=== PATIENT | male | born 1930 | race Caucasian/White ===

== ENCOUNTER 2017-11-06 12:57 | Emergency (ER) | payer MEDICARE, BC ==
--- NOTE | 2017-11-06 13:10 | EDM.PDOC ---
ED HPI GENERAL MEDICAL PROBLEM - General Chief Complaint: Head Injury Stated Complaint: S/P FALL, HEAD INJURY Time Seen by Provider: 11/06/17 12:59 Source of Information: Reports: Patient History Limitations: Reports: No Limitations - History of Present Illness INITIAL COMMENTS - FREE TEXT/NARRATIVE: 87 YO WM presents to ER after fall today. Pt states he was stepping up on curb and tripped, falling forward and hitting the right side of his head on the ground. Pt denies any loss of consciousness. Pt denies any headache currently. Pt came to ER because he's on coumadin and was told he should be evaluated in ER due to risk of bleeding. Pt with a 1cm abrasion to right side of forehead. Pt with abrasion to right elbow without any pain, swelling or discomfort with AROM. Pt denies any neck pain or nausea/vomiting. Onset: Today Onset Date: 11/06/17 Onset Time: 12:00 Location: Reports: Head Severity: Mild Improves with: Reports: None Worsens with: Reports: None Context: Reports: Activity Associated Symptoms: Reports: No Other Symptoms - Related Data Allergies Allergy/AdvReac Type Severity Reaction Status Date / Time No Known Allergies Allergy Verified 11/06/17 13:19 Home Meds: Home Meds Finasteride [Proscar] 5 mg PO DAILY 03/14/13 [History] Magnesium Oxide [Mag-Oxide] 400 mg PO BEDTIME 03/14/13 [History] Metoprolol Succinate [Toprol XL] 37.5 mg PO DAILY 03/14/13 [History] Montelukast [Singulair] 10 mg PO DAILY 03/14/13 [History] Omeprazole 20 mg PO DAILY 03/14/13 [History] Terazosin [Hytrin] 5 mg PO BEDTIME 03/14/13 [History] Warfarin [Coumadin] 5 mg PO DAILY 03/14/13 [History] Lisinopril 10 mg PO DAILY 11/06/17 [History] ED ROS GENERAL - Review of Systems Review Of Systems: See Below Constitutional: Reports: No Symptoms HEENT: Reports: No Symptoms Respiratory: Reports: No Symptoms Cardiovascular: Reports: No Symptoms Endocrine: Reports: No Symptoms GI/Abdominal: Reports: No Symptoms : Reports: No Symptoms Musculoskeletal: Reports: No Symptoms Skin: Reports: No Symptoms Neurological: Reports: No Symptoms Psychiatric: Reports: No Symptoms Hematologic/Lymphatic: Reports: No Symptoms Immunologic: Reports: No Symptoms ED EXAM, HEAD INJURY - Physical Exam Exam: See Below Exam Limited By: No Limitations General Appearance: Alert, WD/WN, No Apparent Distress Head: Normocephalic, Scalp Abrasions Nexus Criteria: No: Posterior, Midline Cervical Tenderness, Evidence of Intoxication, Altered Level of Consciousness, Focal Neurological Deficit, Painful Distraction Injuries Eyes: Bilateral Eye: EOMI, PERRL Ears: Normal External Exam, Normal Canal, Hearing Grossly Normal, Normal TMs Nose: Normal Inspection, Normal Mucousa, No Blood Throat/Mouth: Normal Inspection, Normal Lips, Normal Teeth, Normal Gums, Normal Oropharynx, Normal Voice, No Airway Compromise Neck: Non-Tender, Full Range of Motion, Normal Alignment, Normal Inspection Respiratory: No Respiratory Distress, Lungs Clear, Normal Breath Sounds, No Accessory Muscle Use, Chest Non-Tender Cardiovascular: Normal Peripheral Pulses, Regular Rate, Rhythm, No Edema, No Gallop, No JVD, No Murmur, No Rub GI/Abdominal Exam: Normal Bowel Sounds, Soft, Non-Tender, No Organomegaly, No Distention, No Abnormal Bruit, No Mass Back Exam: Full Range of Motion, Normal Inspection, NT Extremities: Normal Inspection, Normal Range of Motion, Non-Tender, No Pedal Edema, Normal Capillary Refill 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, No Motor/Sensory Deficits, Alert, Normal Mood/Affect, Oriented x 3 Skin: Normal Color, Warm/Dry - Anderson Coma Score Best Eye Response (Anderson): (4) Open Spontaneously Best Verbal Response (Tatum): (5) Oriented Best Motor Response (Anderson): (6) Obeys Commands Course - Vital Signs Last Recorded V/S: Last Vital Signs Temp 36.6 C 11/06/17 13:11 Pulse 68 11/06/17 13:11 Resp 20 11/06/17 13:11 BP 155/93 H 11/06/17 13:11 Pulse Ox 96 11/06/17 13:11 - Orders/Labs/Meds Orders: Active Orders 24 hr Category Date Time Status Head wo Cont [CT] Stat Exams 11/06/17 12:58 Ordered Labs: Laboratory Tests 11/06/17 Range/Units 13:12 PT TNP INR 2.0 H (0.9-1.1) - Radiology Interpretation Free Text/Narrative:: CT head- NAD Departure - Departure Time of Disposition: 14:17 Disposition: Home, Self-Care 01 Condition: Good Clinical Impression: Contusion Head injury due to trauma Qualifiers: Encounter type: initial encounter Qualified Code(s): S09.90XA - Unspecified injury of head, initial encounter - Discharge Information Instructions: Head Injury, Adult, [id number], Facial or Scalp Contusion, Easy -to-Read Forms: ED Department Discharge Additional Instructions: 1. discharge home 2. head injury precautions given 3. follow up with PCP for further evaluation as needed 4. return to ER for worsening symptoms - My Orders Last 24 Hours: My Active Orders 11/06/17 12:58 Head wo Cont [CT] Stat - Assessment/Plan Last 24 Hours: My Active Orders 11/06/17 12:58 Head wo Cont [CT] Stat Assessment:: 1. head contusion 2. fall Plan: 1. discharge home 2. head injury precautions given 3. follow up with PCP for further evaluation as needed 4. return to ER for worsening symptoms
== END 2017-11-06 14:25 | disposition home or self-care (01) ==
LOC: KA.ED 12:57
DX: S09.90XA Unspecified injury of head, initial encounter (principal); S00.01XA Abrasion of scalp, initial encounter; Z79.899 Other long term (current) drug therapy; W01.0XXA Fall on same level from slipping, tripping and stumbling without subsequent striking against object, initial encounter
CPT/HCPCS: 36416; 70450; 85610; 99284

== ENCOUNTER 2019-02-11 08:09 | Observation (INO) | payer MEDICARE, BC ==
--- NOTE | 2019-02-11 09:06 | EDM.PDOC ---
ED HPI GENERAL MEDICAL PROBLEM - General Chief Complaint: General Stated Complaint: COLD SYMPTOMS,SHORTNESS OF BREATH Time Seen by Provider: 02/11/19 08:30 Source of Information: Reports: Patient History Limitations: Reports: No Limitations - History of Present Illness INITIAL COMMENTS - FREE TEXT/NARRATIVE: Patient presents with dyspnea. He says 2 days ago he noticed he was very short of breath after a brief walk. That happened again yesterday. Today he is short of breath all the time. He feels like he should be able to cough something up but can't. He denies asthma, COPD or emphysema. Three years ago he had a cardiac device/pacemaker placed and has A Fib. Denies any pain in chest, neck, shoulder/arm. No recent fever. - Related Data Allergies Allergy/AdvReac Type Severity Reaction Status Date / Time No Known Allergies Allergy Verified 02/11/19 08:38 Home Meds: Home Meds Finasteride [Proscar] 5 mg PO DAILY 03/14/13 [History] Magnesium Oxide [Mag-Oxide] 400 mg PO BEDTIME 03/14/13 [History] Metoprolol Succinate [Toprol XL] 25 mg PO BEDTIME 03/14/13 [History] Montelukast [Singulair] 10 mg PO BEDTIME 03/14/13 [History] Terazosin [Hytrin] 5 mg PO BEDTIME 03/14/13 [History] Warfarin [Coumadin] 5 mg PO ASDIRECTED 03/14/13 [History] Lisinopril 10 mg PO DAILY 11/06/17 [History] Chlorpheniramine Maleate [Allergy Relief] 12 mg PO DAILY PRN 02/11/19 [History] Multivit-Min/FA/Lycopen/Lutein [Centrum Silver Men Tablet] 1 each PO DAILY 02/11 [History] Ranitidine [Zantac] 150 mg PO DAILY PRN 02/11/19 [History] Past Medical History HEENT History: Reports: Cataract, Hard of Hearing, Impaired Vision Cardiovascular History: Reports: Hypertension, Pacemaker, Syncope Respiratory History: Reports: None Gastrointestinal History: Reports: GERD, Hepatitis Genitourinary History: Reports: Prostate Disorder Musculoskeletal History: Reports: Fracture Neurological History: Reports: None Psychiatric History: Reports: None Endocrine/Metabolic History: Reports: None Hematologic History: Reports: None Immunologic History: Reports: None Oncologic (Cancer) History: Reports: Prostate Dermatologic History: Reports: None - Infectious Disease History Infectious Disease History: Reports: Chicken Pox, Measles, Mumps - Past Surgical History HEENT Surgical History: Reports: Cataract Surgery Cardiovascular Surgical History: Reports: None Respiratory Surgical History: Reports: None GI Surgical History: Reports: Colonoscopy, EGD Endocrine Surgical History: Reports: None Neurological Surgical History: Reports: None Musculoskeletal Surgical History: Reports: None Oncologic Surgical History: Reports: None Dermatological Surgical History: Reports: None Social & Family History - Family History Family Medical History: Noncontributory - Caffeine Use Caffeine Use: Reports: None ED ROS GENERAL - Review of Systems Review Of Systems: See Below Constitutional: Denies: Fever, Chills, Weakness, Decreased Appetite HEENT: Denies: Throat Pain, Vision Change Respiratory: Reports: Shortness of Breath, Cough (a little) Cardiovascular: Denies: Chest Pain, Lightheadedness, Syncope GI/Abdominal: Denies: Abdominal Pain, Constipation, Diarrhea, Nausea, Vomiting : Denies: Dysuria, Flank Pain Musculoskeletal: Denies: Neck Pain, Shoulder Pain, Arm Pain Skin: Denies: Cyanosis, Jaundice, Mottled, Pallor, Diaphoresis Neurological: Denies: Confusion, Dizziness, Seizure, Syncope, Trouble Speaking, Difficulty Walking Psychiatric: Denies: Agitation, Anxiety, Confusion ED EXAM, GENERAL - Physical Exam Exam: See Below Exam Limited By: No Limitations General Appearance: Alert, WD/WN, No Apparent Distress Eye Exam: Bilateral Eye: EOMI, Normal Inspection, PERRL Ears: Normal External Exam, Hearing Grossly Normal Nose: Normal Inspection, No Blood Throat/Mouth: Normal Inspection, Normal Voice, No Airway Compromise, Perioral Cyanosis (slight) Head: Atraumatic, Normocephalic Neck: Normal Inspection, Full Range of Motion Respiratory/Chest: Decreased Breath Sounds (shallow respirations), Crackles ( mild bilat). No: Rhonchi, Wheezing, Stridor Cardiovascular: Regular Rate, Rhythm, No Murmur GI/Abdominal: Normal Bowel Sounds, Soft, Non-Tender, No Organomegaly, No Distention Back Exam: Normal Inspection, Full Range of Motion. No: CVA Tenderness (L), CVA Tenderness (R) Extremities: Normal Inspection, Normal Range of Motion Neurological: Alert, Oriented, Normal Cognition, No Motor/Sensory Deficits Psychiatric: Normal Affect, Normal Mood Skin Exam: Warm, Dry, Intact, No Rash, Pallor (mild) Course - Vital Signs Last Recorded V/S: Last Vital Signs Temp 98.9 F 02/11/19 09:59 Pulse 83 02/11/19 09:59 Resp 24 H 02/11/19 09:59 BP 142/102 H 02/11/19 09:59 Pulse Ox 93 L 02/11/19 09:59 - Orders/Labs/Meds Orders: Active Orders 24 hr Category Date Time Status Patient Status [ADT] Routine ADT 02/11/19 09:56 Ordered EKG Documentation Completion [RC] ASDIRECTED Care 02/11/19 09:05 Ordered CULTURE BLOOD [BC] Stat Lab 02/11/19 09:40 Ordered CULTURE BLOOD [BC] Stat Lab 02/11/19 09:40 Ordered Blood Culture x2 Reflex Set [OM.PC] Stat Oth 02/11/19 09:40 Ordered EKG 12 Lead [EK] Routine Ther 02/11/19 09:03 Ordered Labs: Laboratory Tests 02/11/19 02/11/19 02/11/19 Range/Units 09:10 09:10 09:10 WBC 5.54 (5.00-10.00) 10^3/uL RBC 4.58 (4.50-6.00) 10^6/uL Hgb 14.0 (13.0-17.0) g/dL Hct 42.4 (40.0-52.0) % MCV 92.6 H D (82.0-92.0) fL MCH 30.6 (27.0-31.0) pg MCHC 33.0 (32.0-36.0) g/dL RDW 14.4 (11.5-14.5) % Plt Count 151 (150-400) 10^3/uL MPV 11.8 H (7.4-10.4) fL Immature Gran % (Auto) 0.2 (0.0-5.0) % Neut % (Auto) 67.7 (50.0-70.0) % Lymph % (Auto) 17.3 L (20.0-40.0) % [place] % (Auto) 12.5 H (2.0-8.0) % Eos % (Auto) 1.6 (1.0-3.0) % Baso % (Auto) 0.7 (0.0-1.0) % Immature Gran # (Auto) 0.01 (0.00-0.50) 10^3/uL Neut # (Auto) 3.75 (2.50-7.00) 10^3/uL Lymph # (Auto) 0.96 L (1.00-4.00) 10^3/uL [place] # (Auto) 0.69 (0.10-0.80) 10^3/uL Eos # (Auto) 0.09 L (0.10-0.30) 10^3/uL Baso # (Auto) 0.04 (0.00-0.10) 10^3/uL PT 27.6 H (8.9-11.4) SEC INR 2.8 H (0.9-1.1) D-Dimer, Quantitative (<400) ng/mL Sodium 140 (136-145) mmol/L Potassium 4.7 (3.3-5.3) mmol/L Chloride 106 (98-115) mmol/L Carbon Dioxide 25.5 (21.0-32.0) mmol/L Anion Gap 13.2 (5-15) mmol/L BUN 25 (6-25) mg/dL Creatinine 1.24 H (0.51-1.17) mg/dL Est Cr Clr Drug Dosing 41.37 mL/min Estimated GFR (MDRD) 55 mL/min Glucose 91 (75 - 99) mg/dL Calcium 8.7 (8.7-10.3) mg/dL Total Bilirubin 2.3 H (0.2-1.0) mg/dL AST 71 H (15-37) U/L ALT 57 (12-78) U/L Alkaline Phosphatase 211 H (46-116) IU/L Troponin I 0.05 (0.00-0.070) ng/mL B-Natriuretic Peptide (0-100) pg/mL Total Protein 6.8 (6.4-8.2) g/dL Albumin 3.14 (3.00-4.80) g/dL 02/11/19 02/11/19 Range/Units 09:10 09:50 WBC (5.00-10.00) 10^3/uL RBC (4.50-6.00) 10^6/uL Hgb (13.0-17.0) g/dL Hct (40.0-52.0) % MCV (82.0-92.0) fL MCH (27.0-31.0) pg MCHC (32.0-36.0) g/dL RDW (11.5-14.5) % Plt Count (150-400) 10^3/uL MPV (7.4-10.4) fL Immature Gran % (Auto) (0.0-5.0) % Neut % (Auto) (50.0-70.0) % Lymph % (Auto) (20.0-40.0) % [place] % (Auto) (2.0-8.0) % Eos % (Auto) (1.0-3.0) % Baso % (Auto) (0.0-1.0) % Immature Gran # (Auto) (0.00-0.50) 10^3/uL Neut # (Auto) (2.50-7.00) 10^3/uL Lymph # (Auto) (1.00-4.00) 10^3/uL [place] # (Auto) (0.10-0.80) 10^3/uL Eos # (Auto) (0.10-0.30) 10^3/uL Baso # (Auto) (0.00-0.10) 10^3/uL PT (8.9-11.4) SEC INR (0.9-1.1) D-Dimer, Quantitative 230 (<400) ng/mL Sodium (136-145) mmol/L Potassium (3.3-5.3) mmol/L Chloride (98-115) mmol/L Carbon Dioxide (21.0-32.0) mmol/L Anion Gap (5-15) mmol/L BUN (6-25) mg/dL Creatinine (0.51-1.17) mg/dL Est Cr Clr Drug Dosing mL/min Estimated GFR (MDRD) mL/min Glucose (75 - 99) mg/dL Calcium (8.7-10.3) mg/dL Total Bilirubin (0.2-1.0) mg/dL AST (15-37) U/L ALT (12-78) U/L Alkaline Phosphatase (46-116) IU/L Troponin I (0.00-0.070) ng/mL B-Natriuretic Peptide 407 H (0-100) pg/mL Total Protein (6.4-8.2) g/dL Albumin (3.00-4.80) g/dL Meds: Medications Discontinued Medications Generic Name Dose Route Start Last Admin Trade Name Apolinarq PRN Reason Stop Dose Admin Ceftriaxone Sodium 2 gm 02/11/19 09:48 02/11/19 10:20 Rocephin IVPUSH 02/11/19 09:49 2 gm ONETIME ONE Administration - Re-Assessments/Exams Free Text/Narrative Re-Assessment/Exam: 02/11/19 09:59 CXR shows left base infiltrates. CBC and dimer are okay. INR is 2.8. Blood cultures are pending. Will start Rocephin 2 gm ORAL. Discussed findings with patient and he is okay with hospitalization. Discussed case with Dr. Stephen Wells who accepted for admission. Patient stable. 02/11/19 10:09 CXR report indicates CHF and pulmonary edema without mention of infiltrate. I feel there is one at least on the left. Without any ankle swelling or other clinical edema will continue with plan for pneumonia treatment and also check BNP. I informed Dr. Franklin of this. Departure - Departure Time of Disposition: 09:59 Disposition: Admitted As Inpatient 68 Condition: Good Clinical Impression: Hypoxemia requiring supplemental oxygen CAP (community acquired pneumonia) Qualifiers: Laterality: unspecified laterality Qualified Code(s): J18.9 - Pneumonia, unspecified organism - Discharge Information Referrals: Flora Tello PA-C [Primary Care Provider] - Forms: ED Department Discharge - My Orders Last 24 Hours: My Active Orders 02/11/19 09:03 EKG 12 Lead [EK] Routine 02/11/19 09:05 EKG Documentation Completion [RC] ASDIRECTED 02/11/19 09:40 CULTURE BLOOD [BC] Stat CULTURE BLOOD [BC] Stat Blood Culture x2 Reflex Set [OM.PC] Stat 02/11/19 09:56 Patient Status [ADT] Routine - Assessment/Plan Last 24 Hours: My Active Orders 02/11/19 09:03 EKG 12 Lead [EK] Routine 02/11/19 09:05 EKG Documentation Completion [RC] ASDIRECTED 02/11/19 09:40 CULTURE BLOOD [BC] Stat CULTURE BLOOD [BC] Stat Blood Culture x2 Reflex Set [OM.PC] Stat 02/11/19 09:56 Patient Status [ADT] Routine
[2019-02-11 09:45] LABS: ANION GAP 13.2 mmol/L (5-15)
[2019-02-11] MEDS ORDERED: cefTRIAXone 2 GM Vial IVPUSH ONE (09:48)
[2019-02-11] MEDS ORDERED: Sodium Chloride 0.9% 10 ML Syringe FLUSH PRN (10:56)
[2019-02-11] MEDS ORDERED: Furosemide 40 MG/4 ML VIAL IVPUSH ONE (15:55)
--- NOTE | 2019-02-11 16:34 | PCM.HP.2 ---
H&P History of Present Illness - General Date of Service: 02/11/19 Admit Problem/Dx: Admission Diagnosis/Problem Admission Diagnosis/Problem Shortness of breath - History of Present Illness Initial Comments - Free Text/Narative: Mr. Chaves reports that in the past few days, he developed a runny nose and congestion. He had family around for Thanksgiving and after they left, he felt that he didn't have the "gumption" he used to and was a little more "worn out." He has noticed having less energy in the past several months. He felt "winded" with trying to get everything cleaned up in his house and figured he'd better get checked out. He endorses that he is independent with all ADLs and iADLs, including driving in town. He admits that he has not been as active as he used to and "gets played out" easier in general. He hasn't noticed any other concerns , notably including cough, chest pain, fever, or other URI symptoms. - Related Data Allergies/Adverse Reactions: Allergies Allergy/AdvReac Type Severity Reaction Status Date / Time celery Allergy Vomiting Verified 02/11/19 11:08 Home Medications: Home Meds Finasteride [Proscar] 5 mg PO DAILY 03/14/13 [History] Magnesium Oxide 400 mg PO BEDTIME 03/14/13 [History] Metoprolol Succinate [Toprol XL] 25 mg PO BEDTIME 03/14/13 [History] Montelukast [Singulair] 10 mg PO BEDTIME 03/14/13 [History] Terazosin [Hytrin] 5 mg PO BEDTIME 03/14/13 [History] Warfarin [Coumadin] 5 mg PO ASDIRECTED 03/14/13 [History] Lisinopril 10 mg PO DAILY 11/06/17 [History] Chlorpheniramine Maleate [Allergy Relief] 12 mg PO DAILY PRN 02/11/19 [History] Multivit-Min/FA/Lycopen/Lutein [Centrum Silver Men Tablet] 1 each PO DAILY 02/11 [History] Ranitidine [Zantac] 150 mg PO DAILY PRN 02/11/19 [History] Furosemide 10 mg PO DAILY #15 tablet 02/12/19 [Rx] Ipratropium [Atrovent 0.06% Nasal [place]] 2 spray NASBOTH Q6H PRN #1 bottle 02/12 [Rx] Past Medical History HEENT History: Reports: Cataract, Hard of Hearing, Impaired Vision Cardiovascular History: Reports: Hypertension, Pacemaker, Syncope Respiratory History: Reports: None Gastrointestinal History: Reports: GERD, Hepatitis Genitourinary History: Reports: Prostate Disorder Musculoskeletal History: Reports: Fracture Neurological History: Reports: None Psychiatric History: Reports: None Endocrine/Metabolic History: Reports: None Hematologic History: Reports: None Immunologic History: Reports: None Oncologic (Cancer) History: Reports: Prostate Dermatologic History: Reports: None - Infectious Disease History Infectious Disease History: Reports: Chicken Pox, Measles, Mumps - Past Surgical History HEENT Surgical History: Reports: Cataract Surgery Cardiovascular Surgical History: Reports: None Respiratory Surgical History: Reports: None GI Surgical History: Reports: Colonoscopy, EGD Endocrine Surgical History: Reports: None Neurological Surgical History: Reports: None Musculoskeletal Surgical History: Reports: None Oncologic Surgical History: Reports: None Dermatological Surgical History: Reports: None Social & Family History - Family History Oncologic: Reports: Breast (mother), Prostate - Tobacco Use Smoking Status *Q: Former Smoker Used Tobacco, but Quit: Yes Month/Year Tobacco Last Used: quit 1950 Second Hand Smoke Exposure: No - Caffeine Use Caffeine Use: Reports: None - Recreational Drug Use Recreational Drug Use: No H&P Review of Systems - Review of Systems: Review Of Systems: See Below General: Reports: Malaise, Weakness, Fatigue. Denies: Fever, Chills, Night Sweats, Diaphoresis, Decreased Appetite, Weight Loss, Weight Gain HEENT: Reports: Rhinitis, Post Nasal Drip, Sinus Congestion. Denies: Dysphasia , Ear Pain, Eye Pain, Hearing Changes, Sore Throat Pulmonary: Reports: Shortness of Breath. Denies: Wheezing, Pleuritic Chest Pain , Cough, Sputum, Hemoptysis Cardiovascular: Reports: Dyspnea on Exertion, Edema. Denies: Chest Pain, Palpitations, Orthopnea, PND, Lightheadedness, Syncope, Claudication Gastrointestinal: Denies: Abdominal Pain, Black Stool, Bloody Stool, Constipation, Diarrhea, Decreased Appetite, Difficulty Swallowing Genitourinary: Denies: Dysuria, Frequency, Burning, Pain Musculoskeletal: Denies: Shoulder Pain, Back Pain, Joint Pain Skin: Denies: Jaundice, Rash, Wound Psychiatric: Denies: Confusion, Depression, Anxiety Neurological: Reports: Gait Disturbance. Denies: Confusion, Dizziness, Headache , Numbness, Tingling Exam - Exam Exam: See Below - Vital Signs Vital Signs: Last Vital Signs Temp 36.4 C 02/11/19 10:55 Pulse 91 02/11/19 10:55 Resp 20 02/11/19 10:55 BP 142/103 H 02/11/19 10:55 Pulse Ox 94 L 02/11/19 10:56 Weight: 97.84 kg - Exam Physical Exam Comments:: GENERAL: Well-appearing elderly white male sitting on hospital bed in no acute distress. HEENT: Normocephalic, atraumatic. Conjunctiva clear. Nares patent with clear rhinorrhea. Mucous membranes moist, posterior pharynx unremarkable. NECK: Supple, no masses. CV: Irregularly irregular, 2/6 systolic murmur at LLSB and apex, no rubs or gallops. 2+ radial pulses. PULMONARY: Normal effort, clear to auscultation bilaterally, no wheezes or rhonchi, faint crackles in the bilateral bases. ABDOMEN: Positive bowel sounds, soft, nontender, nondistended. EXTREMITIES: 1+ edema in the bilateral legs to mid-mejia, no cyanosis or clubbing. MUSCULOSKELETAL: Moves all extremities well. NEUROLOGICAL: No obvious deficits. DERMATOLOGIC: No rashes or suspicious lesions in exposed areas. PSYCHIATRIC: Alert, interactive, appropriate affect. - Patient Data Lab Results Last 24 hrs: Laboratory Results - last 24 hr 02/11/19 02/11/19 02/11/19 Range/Units 09:10 09:10 09:10 WBC 5.54 (5.00-10.00) 10^3/uL RBC 4.58 (4.50-6.00) 10^6/uL Hgb 14.0 (13.0-17.0) g/dL Hct 42.4 (40.0-52.0) % MCV 92.6 H D (82.0-92.0) fL MCH 30.6 (27.0-31.0) pg MCHC 33.0 (32.0-36.0) g/dL RDW 14.4 (11.5-14.5) % Plt Count 151 (150-400) 10^3/uL MPV 11.8 H (7.4-10.4) fL Immature Gran % (Auto) 0.2 (0.0-5.0) % Neut % (Auto) 67.7 (50.0-70.0) % Lymph % (Auto) 17.3 L (20.0-40.0) % [place] % (Auto) 12.5 H (2.0-8.0) % Eos % (Auto) 1.6 (1.0-3.0) % Baso % (Auto) 0.7 (0.0-1.0) % Immature Gran # (Auto) 0.01 (0.00-0.50) 10^3/uL Neut # (Auto) 3.75 (2.50-7.00) 10^3/uL Lymph # (Auto) 0.96 L (1.00-4.00) 10^3/uL [place] # (Auto) 0.69 (0.10-0.80) 10^3/uL Eos # (Auto) 0.09 L (0.10-0.30) 10^3/uL Baso # (Auto) 0.04 (0.00-0.10) 10^3/uL PT 27.6 H (8.9-11.4) SEC INR 2.8 H (0.9-1.1) D-Dimer, Quantitative (<400) ng/mL Sodium 140 (136-145) mmol/L Potassium 4.7 (3.3-5.3) mmol/L Chloride 106 (98-115) mmol/L Carbon Dioxide 25.5 (21.0-32.0) mmol/L Anion Gap 13.2 (5-15) mmol/L BUN 25 (6-25) mg/dL Creatinine 1.24 H (0.51-1.17) mg/dL Est Cr Clr Drug Dosing 41.37 mL/min Estimated GFR (MDRD) 55 mL/min Glucose 91 (75 - 99) mg/dL Calcium 8.7 (8.7-10.3) mg/dL Total Bilirubin 2.3 H (0.2-1.0) mg/dL AST 71 H (15-37) U/L ALT 57 (12-78) U/L Alkaline Phosphatase 211 H (46-116) IU/L Troponin I 0.05 (0.00-0.070) ng/mL B-Natriuretic Peptide (0-100) pg/mL Total Protein 6.8 (6.4-8.2) g/dL Albumin 3.14 (3.00-4.80) g/dL 02/11/19 02/11/19 Range/Units 09:10 09:50 WBC (5.00-10.00) 10^3/uL RBC (4.50-6.00) 10^6/uL Hgb (13.0-17.0) g/dL Hct (40.0-52.0) % MCV (82.0-92.0) fL MCH (27.0-31.0) pg MCHC (32.0-36.0) g/dL RDW (11.5-14.5) % Plt Count (150-400) 10^3/uL MPV (7.4-10.4) fL Immature Gran % (Auto) (0.0-5.0) % Neut % (Auto) (50.0-70.0) % Lymph % (Auto) (20.0-40.0) % [place] % (Auto) (2.0-8.0) % Eos % (Auto) (1.0-3.0) % Baso % (Auto) (0.0-1.0) % Immature Gran # (Auto) (0.00-0.50) 10^3/uL Neut # (Auto) (2.50-7.00) 10^3/uL Lymph # (Auto) (1.00-4.00) 10^3/uL [place] # (Auto) (0.10-0.80) 10^3/uL Eos # (Auto) (0.10-0.30) 10^3/uL Baso # (Auto) (0.00-0.10) 10^3/uL PT (8.9-11.4) SEC INR (0.9-1.1) D-Dimer, Quantitative 230 (<400) ng/mL Sodium (136-145) mmol/L Potassium (3.3-5.3) mmol/L Chloride (98-115) mmol/L Carbon Dioxide (21.0-32.0) mmol/L Anion Gap (5-15) mmol/L BUN (6-25) mg/dL Creatinine (0.51-1.17) mg/dL Est Cr Clr Drug Dosing mL/min Estimated GFR (MDRD) mL/min Glucose (75 - 99) mg/dL Calcium (8.7-10.3) mg/dL Total Bilirubin (0.2-1.0) mg/dL AST (15-37) U/L ALT (12-78) U/L Alkaline Phosphatase (46-116) IU/L Troponin I (0.00-0.070) ng/mL B-Natriuretic Peptide 407 H (0-100) pg/mL Total Protein (6.4-8.2) g/dL Albumin (3.00-4.80) g/dL Result Diagrams: 02/12/19 07:20 02/12/19 07:20 Problem List Initiated/Reviewed/Updated: Yes Orders Last 24hrs: Active Orders 24 hr Category Date Time Status Patient Status [ADT] Routine ADT 02/11/19 09:56 Active EKG Documentation Completion [RC] ASDIRECTED Care 02/11/19 09:05 Active Oxygen Therapy [RC] PRN Care 02/11/19 10:56 Active Peripheral IV Care [RC] . DIRECTED Care 02/11/19 10:57 Active Pneumonia Education [RC] Click to Edit Care 02/11/19 10:56 Active Up With Assistance [RC] ASDIRECTED Care 02/11/19 10:58 Active VTE/DVT Education [RC] PER UNIT ROUTINE Care 02/11/19 11:00 Active Vital Signs [RC] Q8HR Care 02/11/19 11:00 Active CBC WITH AUTO DIFF [HEME] AM Lab 02/12/19 05:11 Ordered CMP [COMPREHENSIVE METABOLIC PN,CMP] [CHEM] AM Lab 02/12/19 05:11 Ordered CULTURE BLOOD [BC] Stat Lab 02/11/19 09:51 Received CULTURE BLOOD [BC] Stat Lab 02/11/19 10:00 Received PROCALCITONIN [REF] Routine Lab 02/11/19 09:51 Received Finasteride [Proscar] Med 02/12/19 09:00 Active 5 mg PO DAILY Lisinopril [Prinivil] Med 02/12/19 09:00 Active 10 mg PO DAILY Magnesium Oxide Med 02/11/19 21:00 Active 500 mg PO BEDTIME Metoprolol Succinate [Toprol XL] Med 02/11/19 21:00 Active 25 mg PO BEDTIME Montelukast [Singulair] Med 02/11/19 21:00 Active 10 mg PO BEDTIME Ranitidine [Zantac] Med 02/11/19 11:01 Active 150 mg PO DAILY PRN Sodium Chloride 0.9% [Saline Flush] Med 02/11/19 10:56 Active 10 ml FLUSH Q8HR PRN Terazosin [Hytrin] Med 02/11/19 21:00 Active 5 mg PO BEDTIME Warfarin [Coumadin] Med 02/11/19 18:00 Active 2.5 mg PO SuTuThSa@1800 Warfarin [Coumadin] Med 02/12/19 18:00 Active 5 mg PO MoWeFr@1800 Blood Culture x2 Reflex Set [OM.PC] Stat Oth 02/11/19 09:40 Ordered Peripheral IV Insertion Adult [OM.PC] Routine Oth 02/11/19 10:56 Ordered Code Status [Resuscitation Status] Routine Resus Stat 02/11/19 15:55 Ordered EKG 12 Lead [EK] Routine Ther 02/11/19 09:03 Ordered Medication Orders Finasteride (Proscar) 5 mg PO DAILY BRE Lisinopril (Prinivil) 10 mg PO DAILY BRE Magnesium Oxide (Magnesium Oxide) 500 mg PO BEDTIME BRE Metoprolol Succinate (Toprol Xl) 25 mg PO BEDTIME BRE Montelukast Sodium (Singulair) 10 mg PO BEDTIME BRE Ranitidine HCl (Zantac) 150 mg PO DAILY PRN PRN Reason: Heartburn Sodium Chloride (Saline Flush) 10 ml FLUSH Q8HR PRN PRN Reason: keep vein open Terazosin HCl (Hytrin) 5 mg PO BEDTIME BRE Warfarin Sodium (Coumadin) 5 mg PO MoWeFr@1800 BRE Warfarin Sodium (Coumadin) 2.5 mg PO SuTuThSa@1800 BRE Assessment/Plan Comment:: HPI summary: 88yoM with a history notable for atrial fibrillation, HTN, and CKD who developed a runny nose and congestion a few days prior to admission. He had family around for Thanksgiving and after they left, he felt that he didn't have the "gumption" he used to and was a little more "worn out." He has noticed having less energy in the past several months. He felt "winded" with trying to get everything cleaned up in his house and figured he'd better get checked out. He admits that he has not been as active as he used to and "gets played out" easier in general. He hadn't noticed any other concerns, notably including fever , chills, cough, chest pain, or other concerns. ED course: Per provider report, patient had an oxygen requirement of 2lpm and CXR showing basilar pneumonia in the setting of shortness of breath and cough. In review of VS, initial O2 was 91% when oxygen was applied. Remainder of VS normal. CBC/CMP/ D-dimer/troponin/BNP obtained and only abnormalities were Cr 1.24 (baseline 1.2) , bilirubin 2.3 (baseline 1.3), ALP 211 (baseline 160s-170s), AST 71 (baseline 30s-40s), and BNP 407 (no prior). INR 2.8. EKG was in atrial fibrillation. CXR was reported by ED provider as basilar pneumonia, but report later showed evidence of heart failure. He was given ceftriaxone 2gm. After receiving report , accepted for admission, and after independent evaluation, changed status to observation for monitoring, as below. Hospitalization problems and plan: # Heart failure, unknown systolic or diastolic, unknown chronicity # Systolic murmur at apex: No prior echo. # Rhinorrhea, likely viral and/or allergic # Physical deconditioning All of above likely contributors to intermittent, subjective shortness of breath. No evidence of ischemia on EKG or troponin and no complaints of chest pain. He was given ceftriaxone in the ED, but clinical picture without hypoxia, cough, elevated WBC or neutrophilia, or CXR evidence of infiltrate make the diagnosis of pneumonia unlikely. Alternate etiology of HF more likely, with increased sodium intake in the past few days, and elevated BNP. Also with worsening chronic deconditioning, which is certainly also playing a role. Proceed with the following: - Furosemide 10mg IV now - I/O and daily weight - Supportive cares for rhinorrhea, with nasal saline and ipratropium nasal sprays, in addition to outpatient montelukast - AM CBC and CMP - Procalcitonin added, but likely to be of help due to delayed receipt of result as it is a sendout - Outpatient echo - Outpatient physical therapy Chronic, stable conditions: # Atrial fibrillation: rate controlled. Asymptomatic. Continue warfarin and metoprolol succinate. # HTN: Controlled. Continue lisinopril. # CKD, stage 3: At baseline. # BPH: Clinically stable. Continue terazosin and finasteride. # Thrombocytopenia: At baseline. # Hyperbilirubinemia/Elevated ALP and AST: Just above baseline. Recheck tomorrow. # Hypomagnesemia: Recent check wnl. Continue supplementation. # Hypocalcemia: At baseline # Hx prostate cancer Hospitalization details: # FEN: No IVF. Electrolytes normal; recheck tomorrow. Heart healthy diet. # PPX: Therapeutic INR sufficient for DVT ppx. # Code status: FULL. # Disposition: Admit to observation for monitoring of cardiorespiratory status. Anticipate discharge to home tomorrow.
[2019-02-11] MEDS ORDERED: Warfarin 2.5 MG Tab PO SCH (18:00)
[2019-02-11] MEDS ORDERED: Metoprolol Succinate 25 MG Tab.ER PO SCH (21:00)
[2019-02-11] MEDS ORDERED: Non-Formulary Medication 1 Each (Magnesium Oxide [Magnesium Oxide] 400 MG) PO SCH (21:00)
[2019-02-11] MEDS ORDERED: Montelukast 10 MG Tab PO SCH (21:00)
[2019-02-11] MEDS ORDERED: Terazosin 5 MG Cap PO SCH (21:00)
[2019-02-11] MEDS ORDERED: Magnesium Oxide 500 MG Tab PO SCH (21:00)
[2019-02-12 07:51] LABS: ANION GAP 10.1 mmol/L (5-15)
[2019-02-12] MEDS ORDERED: Finasteride 5 MG Tab PO SCH (09:00)
[2019-02-12] MEDS ORDERED: Lisinopril 10 MG Tab PO SCH (09:00)
--- NOTE | 2019-02-12 10:32 | PCM.DCSUM1 ---
Discharge Summary - Hospital Course Free Text/Narrative:: Date of admission: 02/11/19 Date of discharge: 02/12/19 Admission diagnoses: # Heart failure, unknown systolic or diastolic, unknown chronicity # Systolic murmur at apex # Rhinorrhea, likely viral and/or allergic # Physical deconditioning # Atrial fibrillation # HTN # CKD, stage 3 # BPH # Thrombocytopenia # Hyperbilirubinemia # Elevated ALP and AST # Hypomagnesemia. # Hypocalcemia # Hx prostate cancer Discharge diagnoses: # Heart failure, unknown systolic or diastolic, unknown chronicity # Systolic murmur at apex # Rhinorrhea, likely viral and/or allergic # Physical deconditioning # Atrial fibrillation # HTN # CKD, stage 3 # BPH # Thrombocytopenia # Hyperbilirubinemia # Elevated ALP and AST # Hypomagnesemia. # Hypocalcemia # Hx prostate cancer Consultations: None Procedures: None Hospital course: 88yoM with a history notable for atrial fibrillation, HTN, and CKD who developed a runny nose and congestion a few days prior to admission. He had family around for Thanksgiving and after they left, he felt that he didn't have the "gumption" he used to and was a little more "worn out." He has noticed having less energy in the past several months. He felt "winded" with trying to get everything cleaned up in his house and figured he'd better get checked out. He admits that he has not been as active as he used to and "gets played out" easier in general. He hadn't noticed any other concerns, notably including fever , chills, cough, chest pain, or other concerns. In the ED, per provider report, patient had an oxygen requirement of 2lpm and CXR showing basilar pneumonia in the setting of shortness of breath and cough. In review of VS, initial O2 was 91% when oxygen was applied. Remainder of VS normal. CBC/CMP/D-dimer/troponin/BNP obtained and only abnormalities were Cr 1.24 (baseline 1.2), bilirubin 2.3 (baseline 1.3), ALP 211 (baseline 160s-170s) , AST 71 (baseline 30s-40s), and BNP 407 (no prior). INR 2.8. EKG was in atrial fibrillation. CXR was reported by ED provider as basilar pneumonia, but report later showed evidence of heart failure. He was given ceftriaxone 2gm. After receiving report, accepted for admission, and after independent evaluation, changed status to observation for monitoring. Heart failure of unknown type and chronicity, rhinorrhea, and deconditioning all felt to be contributors to intermittent, subjective shortness of breath. No evidence of ischemia on EKG or troponin and no complaints of chest pain. He was given ceftriaxone in the ED, but clinical picture without hypoxia, cough, elevated WBC or neutrophilia, or CXR evidence of infiltrate make the diagnosis of pneumonia unlikely. Alternate etiology of HF more likely, with increased sodium intake in the past days and elevated BNP, so furosemide 10mg IV given with mild diuresis without renal decline. Also with worsening chronic deconditioning, which is certainly also playing a role. He had no complications arise during his stay and was deemed ready for discharge to home with outpatient work-up and follow-up as noted below. Discharge and follow-up recommendations: - Discharge to home - New medications at discharge: furosemide 10mg daily and Atrovent nasal TID prn - Outpatient echocardiogram ([facility] in [facility]) - Outpatient physical therapy, which patient desires at (ordered in [facility]) - Follow-up with PCP in 7-10 days - Discharge Data Discharge Date: 02/12/19 Discharge Disposition: Home, Self-Care 01 Condition: Good - Referral to Home Health Primary Care Physician: Flora Tello PA-C - Patient Instructions Diet: Usual Diet as Tolerated Activity: As Tolerated Driving: May Drive Today Showering/Bathing: May Shower Notify Provider of: Fever, Increased Pain - Discharge Plan *PRESCRIPTION DRUG MONITORING PROGRAM REVIEWED*: Not Applicable *COPY OF PRESCRIPTION DRUG MONITORING REPORT IN PATIENT KAVITA: Not Applicable Prescriptions/Med Rec: Furosemide 10 mg PO DAILY #15 tablet Ipratropium [Atrovent 0.06% Nasal [place]] 2 spray NASBOTH Q6H PRN #1 bottle PRN Reason: Rhinorrhea Home Medications: Home Meds Finasteride [Proscar] 5 mg PO DAILY 03/14/13 [History] Magnesium Oxide 400 mg PO BEDTIME 03/14/13 [History] Metoprolol Succinate [Toprol XL] 25 mg PO BEDTIME 03/14/13 [History] Montelukast [Singulair] 10 mg PO BEDTIME 03/14/13 [History] Terazosin [Hytrin] 5 mg PO BEDTIME 03/14/13 [History] Warfarin [Coumadin] 5 mg PO ASDIRECTED 03/14/13 [History] Lisinopril 10 mg PO DAILY 11/06/17 [History] Chlorpheniramine Maleate [Allergy Relief] 12 mg PO DAILY PRN 02/11/19 [History] Multivit-Min/FA/Lycopen/Lutein [Centrum Silver Men Tablet] 1 each PO DAILY 02/11 [History] Ranitidine [Zantac] 150 mg PO DAILY PRN 02/11/19 [History] Furosemide 10 mg PO DAILY #15 tablet 02/12/19 [Rx] Ipratropium [Atrovent 0.06% Nasal [place]] 2 spray NASBOTH Q6H PRN #1 bottle 02/12 [Rx] Referrals: Flora Tello PA-C [Primary Care Provider] - (in 7-10 days, along with lab Also schedule echocardiogram and outpatient physical therapy appt at [facility] (already ordered in [facility] - Discharge Summary/Plan Comment DC Time >30 min.: Yes - General Info Subjective Update: Mr. Chaves reports no significant concerns. Has some ongoing rhinorrhea and congestion, but no other upper respiratory or cardiopulmonary symptoms. Denies shortness of breath when ambulating thus far today. Edema improved. Overall slept well. Tolerating diet well. Denies fever, chills, ear pain, sore throat, chest pain, cough, abdominal pain, or other concerns. - Patient Data Vitals - Most Recent: Last Vital Signs Temp 36.7 C 02/12/19 06:54 Pulse 86 02/12/19 06:54 Resp 20 02/12/19 06:54 BP 120/84 02/12/19 09:06 Pulse Ox 93 L 02/12/19 06:54 Weight - Most Recent: 97.84 kg I&O - Last 24 hours: Intake & Output 02/11/19 02/12/19 02/12/19 22:59 06:59 14:59 Intake Total 420 250 Output Total 400 Balance 420 -150 Lab Results - Last 24 hrs: Laboratory Results - last 24 hr 02/12/19 02/12/19 Range/Units 07:20 07:20 WBC 5.50 (5.00-10.00) 10^3/uL RBC 4.25 L (4.50-6.00) 10^6/uL Hgb 13.0 (13.0-17.0) g/dL Hct 39.3 L (40.0-52.0) % MCV 92.5 H (82.0-92.0) fL MCH 30.6 (27.0-31.0) pg MCHC 33.1 (32.0-36.0) g/dL RDW 14.5 (11.5-14.5) % Plt Count 124 L (150-400) 10^3/uL MPV 11.3 H (7.4-10.4) fL Immature Gran % (Auto) 0.2 (0.0-5.0) % Neut % (Auto) 62.7 (50.0-70.0) % Lymph % (Auto) 20.4 (20.0-40.0) % [place] % (Auto) 13.5 H (2.0-8.0) % Eos % (Auto) 2.5 (1.0-3.0) % Baso % (Auto) 0.7 (0.0-1.0) % Immature Gran # (Auto) 0.01 (0.00-0.50) 10^3/uL Neut # (Auto) 3.45 (2.50-7.00) 10^3/uL Lymph # (Auto) 1.12 (1.00-4.00) 10^3/uL [place] # (Auto) 0.74 (0.10-0.80) 10^3/uL Eos # (Auto) 0.14 (0.10-0.30) 10^3/uL Baso # (Auto) 0.04 (0.00-0.10) 10^3/uL Sodium 142 (136-145) mmol/L Potassium 3.6 (3.3-5.3) mmol/L Chloride 109 (98-115) mmol/L Carbon Dioxide 26.5 (21.0-32.0) mmol/L Anion Gap 10.1 (5-15) mmol/L BUN 23 (6-25) mg/dL Creatinine 1.20 H (0.51-1.17) mg/dL Est Cr Clr Drug Dosing 42.75 mL/min Estimated GFR (MDRD) 57 mL/min Glucose 94 (75 - 99) mg/dL Calcium 8.5 L (8.7-10.3) mg/dL Total Bilirubin 1.6 H (0.2-1.0) mg/dL AST 34 (15-37) U/L ALT 41 (12-78) U/L Alkaline Phosphatase 187 H (46-116) IU/L Total Protein 6.1 L (6.4-8.2) g/dL Albumin 2.88 L (3.00-4.80) g/dL MARIELY Results - Last 24 hrs: Microbiology 02/11/19 10:00 Aerobic Blood Culture - Preliminary Blood - Venous - Lab Draw NO GROWTH AFTER 1 DAY Anaerobic Blood Culture - Preliminary NO GROWTH AFTER 1 DAY 02/11/19 09:51 Aerobic Blood Culture - Preliminary Blood - Venous NO GROWTH AFTER 1 DAY Anaerobic Blood Culture - Preliminary NO GROWTH AFTER 1 DAY Med Orders - Current: Current Medications Finasteride (Proscar) 5 mg PO DAILY [facility] Last Admin: 02/12/19 09:06 Dose: 5 mg Lisinopril (Prinivil) 10 mg PO DAILY [facility] Last Admin: 02/12/19 09:06 Dose: 10 mg Magnesium Oxide (Magnesium Oxide) 500 mg PO BEDTIME [facility] Last Admin: 02/11/19 20:31 Dose: 500 mg Metoprolol Succinate (Toprol Xl) 25 mg PO BEDTIME [facility] Last Admin: 02/11/19 20:31 Dose: 25 mg Montelukast Sodium (Singulair) 10 mg PO BEDTIME [facility] Last Admin: 02/11/19 20:31 Dose: 10 mg Ranitidine HCl (Zantac) 150 mg PO DAILY PRN PRN Reason: Heartburn Sodium Chloride (Saline Flush) 10 ml FLUSH Q8HR PRN PRN Reason: keep vein open Last Admin: 02/11/19 16:56 Dose: 10 ml Terazosin HCl (Hytrin) 5 mg PO BEDTIME [facility] Last Admin: 02/11/19 20:31 Dose: 5 mg Warfarin Sodium (Coumadin) 5 mg PO MoWeFr@1800 [facility] Warfarin Sodium (Coumadin) 2.5 mg PO SuTuThSa@1800 [facility] Last Admin: 02/11/19 18:35 Dose: 2.5 mg Discontinued Medications Ceftriaxone Sodium (Rocephin) 2 gm IVPUSH ONETIME ONE Stop: 02/11/19 09:49 Last Admin: 02/11/19 10:20 Dose: 2 gm Furosemide (Lasix) 10 mg IVPUSH NOW ONE Stop: 02/11/19 15:56 Last Admin: 02/11/19 16:55 Dose: 10 mg Non-Formulary Medication (Magnesium Oxide [Magnesium Oxide]) 400 mg PO BEDTIME BRE - Exam Physical Findings Comments:: GENERAL: Well-appearing elderly white male sitting in bedside chair in no acute distress. HEENT: Normocephalic, atraumatic. Conjunctiva clear. Nares patent with clear rhinorrhea. Mucous membranes moist, posterior pharynx unremarkable. NECK: Supple, no masses. CV: Irregularly irregular, 2/6 systolic murmur at LLSB and apex, no rubs or gallops. 2+ radial pulses. PULMONARY: Normal effort, clear to auscultation bilaterally, no wheezes or rhonchi, faint crackles in the bilateral bases. ABDOMEN: Positive bowel sounds, soft, nontender, nondistended. EXTREMITIES: 1+ edema in the bilateral legs to mid-mejia with interval improvement, no cyanosis or clubbing. MUSCULOSKELETAL: Moves all extremities well. NEUROLOGICAL: No obvious deficits. DERMATOLOGIC: No rashes or suspicious lesions in exposed areas. PSYCHIATRIC: Alert, interactive, appropriate affect.
[2019-02-12] MEDS ORDERED: Warfarin 5 MG Tab PO SCH (18:00)
== END 2019-02-12 12:55 | disposition home or self-care (01) ==
LOC: KA.ED 08:09 → KA.MS 09:56 → INTOOBSV 09:56
PROVIDERS: ADMIT Family Medicine; ATTEND Family Medicine
DX: I13.0 Hypertensive heart and chronic kidney disease with heart failure and stage 1 through stage 4 chronic kidney disease, or unspecified chronic kidney disease (principal); N18.3 Chronic kidney disease, stage 3 (moderate); I50.9 Heart failure, unspecified; J34.89 Other specified disorders of nose and nasal sinuses; I48.91 Unspecified atrial fibrillation; N40.0 Benign prostatic hyperplasia without lower urinary tract symptoms; D69.6 Thrombocytopenia, unspecified; E80.6 Other disorders of bilirubin metabolism; R74.8 Abnormal levels of other serum enzymes; E83.42 Hypomagnesemia; E83.51 Hypocalcemia; K21.9 Gastro-esophageal reflux disease without esophagitis; Z85.46 Personal history of malignant neoplasm of prostate; Z91.018 Allergy to other foods; Z79.899 Other long term (current) drug therapy; Z79.01 Long term (current) use of anticoagulants; Z87.891 Personal history of nicotine dependence
CPT/HCPCS: 36415; 71046; 80053; 83880; 84145; 84484; 85025; 85379; 85610; 87040; 87077; 93005; 99285-25; A9270-GY; J0696; J1940

== ENCOUNTER 2019-03-08 19:00 | Inpatient (IN) | payer MEDICARE, BC ==
[2019-03-08] MEDS ORDERED: Sodium Chloride 0.9% 10 ML Syringe FLUSH PRN (19:32)
--- NOTE | 2019-03-08 19:36 | EDM.PDOC ---
ED HPI GENERAL MEDICAL PROBLEM - General Chief Complaint: General Stated Complaint: shortness of breath Time Seen by Provider: 03/08/19 19:25 Source of Information: Reports: Patient, Family History Limitations: Reports: No Limitations - History of Present Illness INITIAL COMMENTS - FREE TEXT/NARRATIVE: 88 YO WM with PMH of A Fib,CAD,CKD presents to ER with complaints of progressive shortness of breath,with increased fatigue and generalized weakness over the last few days. Pt currently resides in an RETIREMENT and just returned from [place] after a 4 day trip for [employer]. Pt reports noticing increased swelling in his lower extremities over the last 4 days. Pt denies chest pain, dizziness or diaphoresis. Pt states he felt a little nauseated tonight after supper. Pt is O2 dependent x 1 week after recently being started on supplemental O2 secondary to his hospital stay 1 month ago. Pt was diagnosed with Bibasilar pneumonia at that time. Pt denies fever/chills, no recent cough/congestion. Pt denies any weight gain or weight loss. Onset: Gradual Duration: Getting Worse Location: Reports: Generalized Severity: Mild Improves with: Reports: Rest Worsens with: Reports: Movement Associated Symptoms: Reports: Loss of Appetite, Malaise, Nausea/Vomiting, Shortness of Breath, Weakness. Denies: Chest Pain, Cough, cough w sputum, Diaphoresis, Fever/Chills, Headaches, Syncope - Related Data Allergies Allergy/AdvReac Type Severity Reaction Status Date / Time celery Allergy Vomiting Verified 03/08/19 19:19 Home Meds: Home Meds Finasteride [Proscar] 5 mg PO DAILY 03/14/13 [History] Magnesium Oxide 400 mg PO BEDTIME 03/14/13 [History] Metoprolol Succinate [Toprol XL] 25 mg PO BEDTIME 03/14/13 [History] Montelukast [Singulair] 10 mg PO BEDTIME 03/14/13 [History] Terazosin [Hytrin] 5 mg PO BEDTIME 03/14/13 [History] Warfarin [Coumadin] 5 mg PO ASDIRECTED 03/14/13 [History] Lisinopril 10 mg PO DAILY 11/06/17 [History] Chlorpheniramine Maleate [Allergy Relief] 12 mg PO DAILY PRN 02/11/19 [History] Multivit-Min/FA/Lycopen/Lutein [Centrum Silver Men Tablet] 1 each PO DAILY 02/11 [History] Ranitidine [Zantac] 150 mg PO DAILY PRN 02/11/19 [History] Furosemide 10 mg PO DAILY #15 tablet 02/12/19 [Rx] Ipratropium [Atrovent 0.06% Nasal [place]] 2 spray NASBOTH Q6H PRN #1 bottle 02/12 [Rx] Past Medical History HEENT History: Reports: Cataract, Hard of Hearing, Impaired Vision Cardiovascular History: Reports: Hypertension, Pacemaker, Syncope Respiratory History: Reports: None Gastrointestinal History: Reports: GERD, Hepatitis Genitourinary History: Reports: Prostate Disorder Musculoskeletal History: Reports: Fracture Neurological History: Reports: None Psychiatric History: Reports: None Endocrine/Metabolic History: Reports: None Hematologic History: Reports: None Immunologic History: Reports: None Oncologic (Cancer) History: Reports: Prostate Dermatologic History: Reports: None - Infectious Disease History Infectious Disease History: Reports: Chicken Pox, Measles, Mumps - Past Surgical History HEENT Surgical History: Reports: Cataract Surgery Cardiovascular Surgical History: Reports: None Respiratory Surgical History: Reports: None GI Surgical History: Reports: Colonoscopy, EGD Endocrine Surgical History: Reports: None Neurological Surgical History: Reports: None Musculoskeletal Surgical History: Reports: None Oncologic Surgical History: Reports: None Dermatological Surgical History: Reports: None Social & Family History - Family History Family Medical History: Noncontributory Oncologic: Reports: Breast (mother), Prostate - Tobacco Use Smoking Status *Q: Former Smoker Used Tobacco, but Quit: Yes Month/Year Tobacco Last Used: quit 50 yrs ago Second Hand Smoke Exposure: No - Caffeine Use Caffeine Use: Reports: Soda - Recreational Drug Use Recreational Drug Use: No ED ROS GENERAL - Review of Systems Review Of Systems: See Below Constitutional: Reports: No Symptoms, Weakness HEENT: Reports: No Symptoms Respiratory: Reports: Shortness of Breath Cardiovascular: Reports: Dyspnea on Exertion Endocrine: Reports: No Symptoms GI/Abdominal: Reports: Nausea : Reports: No Symptoms Musculoskeletal: Reports: No Symptoms Skin: Reports: No Symptoms Neurological: Reports: No Symptoms Psychiatric: Reports: No Symptoms Hematologic/Lymphatic: Reports: No Symptoms Immunologic: Reports: No Symptoms ED EXAM, GENERAL - Physical Exam Exam: See Below Exam Limited By: No Limitations General Appearance: Alert, WD/WN, No Apparent Distress Head: Atraumatic, Normocephalic Neck: Normal Inspection, Supple, Non-Tender, Full Range of Motion Respiratory/Chest: No Respiratory Distress, Lungs Clear, Normal Breath Sounds, No Accessory Muscle Use, Chest Non-Tender, Decreased Breath Sounds Cardiovascular: Normal Peripheral Pulses, Regular Rate, Rhythm, No Edema, No Gallop, No JVD, No Rub, Systolic Murmur GI/Abdominal: Normal Bowel Sounds, Soft, Non-Tender, No Organomegaly, No Distention, No Abnormal Bruit, No Mass Back Exam: Normal Inspection, Full Range of Motion, NT Extremities: Normal Range of Motion, Non-Tender, Normal Capillary Refill, Pedal Edema Neurological: Alert, Oriented, CN II-XII Intact, Normal Cognition, Normal Gait, Normal Reflexes, No Motor/Sensory Deficits Psychiatric: Normal Affect, Normal Mood Skin Exam: Warm, Dry, Intact, Normal Color, No Rash Lymphatic: No Adenopathy EKG INTERPRETATION EKG Date: 03/08/19 Time: 19:26 Rhythm: A-Fib Rate (Beats/Min): 78 [place]: Normal P-Wave: Absent QRS: Normal ST-T: Normal QT: Prolonged Course - Vital Signs Last Recorded V/S: Last Vital Signs Temp 36.4 C 03/08/19 19:13 Pulse 84 03/08/19 20:00 Resp 20 03/08/19 20:31 BP 129/80 03/08/19 20:31 Pulse Ox 95 03/08/19 20:31 - Orders/Labs/Meds Orders: Active Orders 24 hr Category Date Time Status Cardiac Monitoring [RC] . DIRECTED Care 03/08/19 19:32 Active EKG Documentation Completion [RC] ASDIRECTED Care 03/08/19 19:21 Active Peripheral IV Care [RC] . DIRECTED Care 03/08/19 19:33 Active Sodium Chloride 0.9% [Saline Flush] Med 03/08/19 19:32 Active 10 ml FLUSH Q8HR PRN Peripheral IV Insertion Adult [OM.PC] Routine Oth 03/08/19 19:32 Ordered EKG 12 Lead [EK] Routine Ther 03/08/19 19:20 Ordered Medication Orders Sodium Chloride (Saline Flush) 10 ml FLUSH Q8HR PRN PRN Reason: keep vein open Labs: Laboratory Tests 03/08/19 03/08/19 03/08/19 Range/Units 20:00 20:00 20:00 WBC 5.23 (5.00-10.00) 10^3/uL RBC 4.17 L (4.50-6.00) 10^6/uL Hgb 12.5 L (13.0-17.0) g/dL Hct 39.5 L (40.0-52.0) % MCV 94.7 H (82.0-92.0) fL MCH 30.0 (27.0-31.0) pg MCHC 31.6 L (32.0-36.0) g/dL RDW 15.7 H (11.5-14.5) % Plt Count 107 L (150-400) 10^3/uL MPV 12.3 H (7.4-10.4) fL Immature Gran % (Auto) 0.2 (0.0-5.0) % Neut % (Auto) 60.1 (50.0-70.0) % Lymph % (Auto) 23.5 (20.0-40.0) % [place] % (Auto) 14.1 H (2.0-8.0) % Eos % (Auto) 1.1 (1.0-3.0) % Baso % (Auto) 1.0 (0.0-1.0) % Immature Gran # (Auto) 0.01 (0.00-0.50) 10^3/uL Neut # (Auto) 3.14 (2.50-7.00) 10^3/uL Lymph # (Auto) 1.23 (1.00-4.00) 10^3/uL [place] # (Auto) 0.74 (0.10-0.80) 10^3/uL Eos # (Auto) 0.06 L (0.10-0.30) 10^3/uL Baso # (Auto) 0.05 (0.00-0.10) 10^3/uL PT 42.2 H D (8.9-11.4) SEC INR 4.3 H* (0.9-1.1) APTT 41.1 H (23.1-31.3) SEC Sodium 144 (136-145) mmol/L Potassium 3.5 (3.3-5.3) mmol/L Chloride 107 (98-115) mmol/L Carbon Dioxide 30.3 (21.0-32.0) mmol/L Anion Gap 10.2 (5-15) mmol/L BUN 31 H (6-25) mg/dL Creatinine 1.51 H (0.51-1.17) mg/dL Est Cr Clr Drug Dosing 34.54 mL/min Estimated GFR (MDRD) 44 mL/min Glucose 116 H (75 - 99) mg/dL Calcium 8.7 (8.7-10.3) mg/dL Total Bilirubin 2.2 H (0.2-1.0) mg/dL AST 41 H (15-37) U/L ALT 54 (12-78) U/L Alkaline Phosphatase 122 H (46-116) IU/L Creatine Kinase 129 (26-276) U/L CK-MB (CK-2) 2.00 (0.00-4.30) ng/mL Troponin I 0.04 (0.00-0.070) ng/mL B-Natriuretic Peptide 571 H (0-100) pg/mL Total Protein 6.1 L (6.4-8.2) g/dL Albumin 3.06 (3.00-4.80) g/dL Meds: Medications Generic Name Dose Route Start Last Admin Trade Name Freq PRN Reason Stop Dose Admin Sodium Chloride 10 ml 03/08/19 19:32 Saline Flush FLUSH Q8HR PRN keep vein open Discontinued Medications Generic Name Dose Route Start Last Admin Trade Name Freq PRN Reason Stop Dose Admin Furosemide 40 mg 03/08/19 20:38 03/08/19 20:52 Lasix IVPUSH 03/08/19 20:39 40 mg NOW ONE Administration - Radiology Interpretation Free Text/Narrative:: CXR- CHF exacerbation compared to prior film and CM Departure - Departure Time of Disposition: 21:02 Disposition: Admitted As Inpatient 66 Condition: Fair Clinical Impression: CHF, Congestive heart failure, Thrombocytopenia - Discharge Information Forms: ED Department Discharge Sepsis Event Note - Evaluation Sepsis Screening Result: No Definite Risk - Focused Exam Vital Signs: Vital Signs Temp Pulse Resp BP Pulse Ox 03/08/19 20:31 20 129/80 95 03/08/19 20:00 84 22 H 132/90 96 03/08/19 19:13 36.4 C 86 22 H 140/85 97 Date Exam was Performed: 03/08/19 Time Exam was Performed: 21:02 - My Orders Last 24 Hours: My Active Orders 03/08/19 19:20 EKG 12 Lead [EK] Routine 03/08/19 19:21 EKG Documentation Completion [RC] ASDIRECTED 03/08/19 19:32 Cardiac Monitoring [RC] . DIRECTED Sodium Chloride 0.9% [Saline Flush] 10 ml FLUSH Q8HR PRN Peripheral IV Insertion Adult [OM.PC] Routine 03/08/19 19:33 Peripheral IV Care [RC] . DIRECTED - Assessment/Plan Last 24 Hours: My Active Orders 03/08/19 19:20 EKG 12 Lead [EK] Routine 03/08/19 19:21 EKG Documentation Completion [RC] ASDIRECTED 03/08/19 19:32 Cardiac Monitoring [RC] . DIRECTED Sodium Chloride 0.9% [Saline Flush] 10 ml FLUSH Q8HR PRN Peripheral IV Insertion Adult [OM.PC] Routine 03/08/19 19:33 Peripheral IV Care [RC] . DIRECTED Assessment:: 1. CHF exacerbation 2. mild thrombocytopenia Plan: 1. admit to medicine- Dr Alyse Wells 2. lasix 40mg IV now 3. supportive care 4. repeat labs in am
--- NOTE | 2019-03-08 20:23 | CR ---
[id number] RAD/RAD Chest PA And Lateral EXAM: RAD Chest PA And Lateral INDICATION: SOB COMPARISON: February 11, 2019. DISCUSSION: Cardiomegaly and central vascular congestion with small bilateral pleural effusions and bilateral parenchymal opacities. Findings are most consistent with congestive heart failure exacerbation have increased since the prior examination. IMPRESSION: As above. Kings Garcia MD 03/08/192021 Thank you for allowing us to participate in the care of your patient.
[2019-03-08] MEDS ORDERED: Furosemide 40 MG/4 ML VIAL IVPUSH ONE (20:38)
[2019-03-08 20:41] LABS: ANION GAP 10.2 mmol/L (5-15)
[2019-03-08] MEDS: Albuterol/Ipratropium 3.0-0.5 MG/3 ML Neb Soln NEB PRN (23:16)
[2019-03-09] MEDS ORDERED: Atropine 0.1 MG/ML 10 ML Syringe IVPUSH PRN (00:35)
[2019-03-09] MEDS ORDERED: Nitroglycerin 0.4 MG Tab.SL SL PRN (00:35)
[2019-03-09] MEDS ORDERED: EPINEPHrine 1:10,000 1 MG/10 ML Syringe IVPUSH PRN (00:35)
[2019-03-09] MEDS ORDERED: Lidocaine 2% 100 MG/5 ML Syringe IVPUSH PRN (00:35)
[2019-03-09 07:51] LABS: ANION GAP 12.8 mmol/L (5-15)
[2019-03-09] MEDS: Finasteride 5 MG Tab PO SCH (09:37)
[2019-03-09] MEDS: Lisinopril 10 MG Tab PO SCH (09:37)
[2019-03-09] MEDS: Metoprolol Succinate 25 MG Tab.ER PO SCH (09:40)
[2019-03-09] MEDS: Albuterol/Ipratropium 3.0-0.5 MG/3 ML Neb Soln NEB PRN (09:57)
[2019-03-09] MEDS ORDERED: Lisinopril 10 MG Tab PO ONE (10:32)
--- NOTE | 2019-03-09 10:34 | PCM.HP.2 ---
H&P History of Present Illness - General Date of Service: 03/09/19 Admit Problem/Dx: Admission Diagnosis/Problem Admission Diagnosis/Problem Congestive heart failure Source of Information: Patient, Old Records History Limitations: Reports: No Limitations - Related Data Allergies/Adverse Reactions: Allergies Allergy/AdvReac Type Severity Reaction Status Date / Time celery Allergy Vomiting Verified 03/08/19 19:19 Home Medications: Home Meds Finasteride [Proscar] 5 mg PO DAILY 03/14/13 [History] Magnesium Oxide 400 mg PO BEDTIME 03/14/13 [History] Metoprolol Succinate [Toprol XL] 50 mg PO ACBREAKFAST 03/14/13 [History] Montelukast [Singulair] 10 mg PO BEDTIME 03/14/13 [History] Terazosin [Hytrin] 5 mg PO BEDTIME 03/14/13 [History] Warfarin [Coumadin] 5 mg PO ASDIRECTED 03/14/13 [History] Lisinopril 10 mg PO DAILY 11/06/17 [History] Chlorpheniramine Maleate [Allergy Relief] 12 mg PO DAILY PRN 02/11/19 [History] Multivit-Min/FA/Lycopen/Lutein [Centrum Silver Men Tablet] 1 each PO DAILY 02/11 [History] Ranitidine [Zantac] 150 mg PO DAILY PRN 02/11/19 [History] Furosemide 10 mg PO DAILY #15 tablet 02/12/19 [Rx] Ipratropium [Atrovent 0.06% Nasal [place]] 2 spray NASBOTH Q6H PRN #1 bottle 02/12 [Rx] Past Medical History HEENT History: Reports: Cataract, Hard of Hearing, Impaired Vision Cardiovascular History: Reports: Hypertension, Pacemaker, Syncope Respiratory History: Reports: None Gastrointestinal History: Reports: GERD, Hepatitis Genitourinary History: Reports: Prostate Disorder Musculoskeletal History: Reports: Fracture Neurological History: Reports: None Psychiatric History: Reports: None Endocrine/Metabolic History: Reports: None Hematologic History: Reports: None Immunologic History: Reports: None Oncologic (Cancer) History: Reports: Prostate Dermatologic History: Reports: None - Infectious Disease History Infectious Disease History: Reports: Chicken Pox, Measles, Mumps - Past Surgical History HEENT Surgical History: Reports: Cataract Surgery Cardiovascular Surgical History: Reports: None Respiratory Surgical History: Reports: None GI Surgical History: Reports: Colonoscopy, EGD Endocrine Surgical History: Reports: None Neurological Surgical History: Reports: None Musculoskeletal Surgical History: Reports: None Oncologic Surgical History: Reports: None Dermatological Surgical History: Reports: None Social & Family History - Family History Family Medical History: Noncontributory Oncologic: Reports: Breast, Prostate - Tobacco Use Smoking Status *Q: Never Smoker Used Tobacco, but Quit: Yes Month/Year Tobacco Last Used: quit 50 yrs ago Second Hand Smoke Exposure: No - Caffeine Use Caffeine Use: Reports: None - Recreational Drug Use Recreational Drug Use: No H&P Review of Systems - Review of Systems: Review Of Systems: See Below General: Reports: Malaise. Denies: Fever, Chills HEENT: Reports: No Symptoms Pulmonary: Reports: Shortness of Breath, Cough. Denies: Wheezing Cardiovascular: Reports: Dyspnea on Exertion, PND, Edema. Denies: Chest Pain, Blood Pressure Problem Gastrointestinal: Reports: No Symptoms Genitourinary: Reports: No Symptoms Musculoskeletal: Reports: No Symptoms Skin: Reports: No Symptoms Psychiatric: Reports: No Symptoms Neurological: Reports: No Symptoms Hematologic/Lymphatic: Reports: No Symptoms Exam - Exam Exam: See Below - Vital Signs Vital Signs: Last Vital Signs Temp 97.0 F 03/09/19 06:52 Pulse 88 03/09/19 09:40 Resp 20 03/09/19 06:52 BP 141/93 H 03/09/19 09:40 Pulse Ox 96 03/09/19 06:52 Weight: 220 lb 8 oz - Exam Quality Assessment: Supplemental Oxygen General: Alert, Oriented, Cooperative HEENT: Mucosa Moist & [place] Neck: Supple, JVD Lungs: Crackles, Rales, Rhonchi Cardiovascular: Irregular Rhythm GI/Abdominal Exam: No Distention (Male) Exam: No Hernia, Deferred Rectal (Males) Exam: Deferred Back Exam: No: CVA Tenderness (L), CVA Tenderness (R) Extremities: Pedal Edema (3+ BLE) Peripheral Pulses: 2+: Radial (L), Radial (R) Skin: Warm, Dry, Intact Neurological: Cranial Nerves Intact, Reflexes Equal Bilateral Neuro Extensive - Mental Status: Alert, Oriented x3, Normal Mood/Affect, Normal Cognition Neuro Extensive - Motor, Sensory, Reflexes: CN II-XII Intact, Normal Gait, Normal Reflexes Psychiatric: Alert, Normal Affect, Normal Mood - Patient Data Lab Results Last 24 hrs: Laboratory Results - last 24 hr 03/08/19 03/08/19 03/08/19 Range/Units 20:00 20:00 20:00 WBC 5.23 (5.00-10.00) 10^3/uL RBC 4.17 L (4.50-6.00) 10^6/uL Hgb 12.5 L (13.0-17.0) g/dL Hct 39.5 L (40.0-52.0) % MCV 94.7 H (82.0-92.0) fL MCH 30.0 (27.0-31.0) pg MCHC 31.6 L (32.0-36.0) g/dL RDW 15.7 H (11.5-14.5) % Plt Count 107 L (150-400) 10^3/uL MPV 12.3 H (7.4-10.4) fL Immature Gran % (Auto) 0.2 (0.0-5.0) % Neut % (Auto) 60.1 (50.0-70.0) % Lymph % (Auto) 23.5 (20.0-40.0) % [place] % (Auto) 14.1 H (2.0-8.0) % Eos % (Auto) 1.1 (1.0-3.0) % Baso % (Auto) 1.0 (0.0-1.0) % Immature Gran # (Auto) 0.01 (0.00-0.50) 10^3/uL Neut # (Auto) 3.14 (2.50-7.00) 10^3/uL Lymph # (Auto) 1.23 (1.00-4.00) 10^3/uL [place] # (Auto) 0.74 (0.10-0.80) 10^3/uL Eos # (Auto) 0.06 L (0.10-0.30) 10^3/uL Baso # (Auto) 0.05 (0.00-0.10) 10^3/uL PT 42.2 H D (8.9-11.4) SEC INR 4.3 H* (0.9-1.1) APTT 41.1 H (23.1-31.3) SEC Sodium 144 (136-145) mmol/L Potassium 3.5 (3.3-5.3) mmol/L Chloride 107 (98-115) mmol/L Carbon Dioxide 30.3 (21.0-32.0) mmol/L Anion Gap 10.2 (5-15) mmol/L BUN 31 H (6-25) mg/dL Creatinine 1.51 H (0.51-1.17) mg/dL Est Cr Clr Drug Dosing 34.54 mL/min Estimated GFR (MDRD) 44 mL/min Glucose 116 H (75 - 99) mg/dL Calcium 8.7 (8.7-10.3) mg/dL Total Bilirubin 2.2 H (0.2-1.0) mg/dL AST 41 H (15-37) U/L ALT 54 (12-78) U/L Alkaline Phosphatase 122 H (46-116) IU/L Creatine Kinase 129 (26-276) U/L CK-MB (CK-2) 2.00 (0.00-4.30) ng/mL Troponin I 0.04 (0.00-0.070) ng/mL B-Natriuretic Peptide 571 H (0-100) pg/mL Total Protein 6.1 L (6.4-8.2) g/dL Albumin 3.06 (3.00-4.80) g/dL 03/09/19 03/09/19 Range/Units 07:10 07:10 WBC (5.00-10.00) 10^3/uL RBC (4.50-6.00) 10^6/uL Hgb (13.0-17.0) g/dL Hct (40.0-52.0) % MCV (82.0-92.0) fL MCH (27.0-31.0) pg MCHC (32.0-36.0) g/dL RDW (11.5-14.5) % Plt Count (150-400) 10^3/uL MPV (7.4-10.4) fL Immature Gran % (Auto) (0.0-5.0) % Neut % (Auto) (50.0-70.0) % Lymph % (Auto) (20.0-40.0) % [place] % (Auto) (2.0-8.0) % Eos % (Auto) (1.0-3.0) % Baso % (Auto) (0.0-1.0) % Immature Gran # (Auto) (0.00-0.50) 10^3/uL Neut # (Auto) (2.50-7.00) 10^3/uL Lymph # (Auto) (1.00-4.00) 10^3/uL [place] # (Auto) (0.10-0.80) 10^3/uL Eos # (Auto) (0.10-0.30) 10^3/uL Baso # (Auto) (0.00-0.10) 10^3/uL PT 48.0 H (8.9-11.4) SEC INR 4.9 H* (0.9-1.1) APTT (23.1-31.3) SEC Sodium 149 H (136-145) mmol/L Potassium 3.1 L (3.3-5.3) mmol/L Chloride 108 (98-115) mmol/L Carbon Dioxide 31.3 (21.0-32.0) mmol/L Anion Gap 12.8 (5-15) mmol/L BUN 29 H (6-25) mg/dL Creatinine 1.38 H (0.51-1.17) mg/dL Est Cr Clr Drug Dosing 37.80 mL/min Estimated GFR (MDRD) 49 mL/min Glucose 80 (75 - 99) mg/dL Calcium 8.4 L (8.7-10.3) mg/dL Total Bilirubin (0.2-1.0) mg/dL AST (15-37) U/L ALT (12-78) U/L Alkaline Phosphatase (46-116) IU/L Creatine Kinase (26-276) U/L CK-MB (CK-2) (0.00-4.30) ng/mL Troponin I (0.00-0.070) ng/mL B-Natriuretic Peptide (0-100) pg/mL Total Protein (6.4-8.2) g/dL Albumin (3.00-4.80) g/dL Result Diagrams: 03/08/19 20:00 03/10/19 07:15 Sepsis Event Note - Evaluation Sepsis Screening Result: No Definite Risk - Focused Exam Vital Signs: Vital Signs Temp Pulse Pulse Resp BP BP BP 03/09/19 09:40 88 141/93 H 03/09/19 09:37 141/93 H 03/09/19 06:52 97.0 F 81 20 117/78 03/09/19 02:53 96.5 F 87 22 H 121/79 03/08/19 22:59 98.3 F 89 24 H 134/100 H Pulse Ox 03/09/19 09:40 03/09/19 09:37 03/09/19 06:52 96 03/09/19 02:53 94 L 03/08/19 22:59 95 Date Exam was Performed: 03/10/19 Time Exam was Performed: 13:37 Problem List Initiated/Reviewed/Updated: Yes Orders Last 24hrs: Active Orders 24 hr Category Date Time Status Patient Status Manage Transfer [TRANSFER] Routine ADT 03/08/19 21:03 Active Patient Status [ADT] Routine ADT 03/08/19 21:04 Active Cardiac Monitoring [RC] 0700,1100,1500,1900,2300,0300 Care 03/08/19 19:32 Active Height and Weight [RC] 0700 Care 03/08/19 21:04 Active Intake and Output [RC] 0600,1400,2200 Care 03/08/19 21:05 Active Oxygen Therapy [RC] PRN Care 03/08/19 21:04 Active RT Aerosol Therapy [RC] ASDIRECTED Care 03/08/19 22:58 Active Up With Assistance [RC] ASDIRECTED Care 03/08/19 21:04 Active VTE/DVT Education [RC] PER UNIT ROUTINE Care 03/08/19 21:04 Active Vital Signs [RC] 0300,0700,1100,1500,1900,2300 Care 03/08/19 21:04 Active Heart Healthy Diet [DIET] Diet 03/09/19 Lunch Active INR,PT,PROTHROMBIN TIME [COAG] AM Lab 03/10/19 05:11 Ordered INR,PT,PROTHROMBIN TIME [COAG] AM Lab 03/11/19 05:11 Ordered INR,PT,PROTHROMBIN TIME [COAG] AM Lab 03/12/19 05:11 Ordered INR,PT,PROTHROMBIN TIME [COAG] AM Lab 03/13/19 05:11 Ordered Albuterol/Ipratropium [DuoNeb 3.0-0.5 MG/3 ML] Med 03/08/19 22:57 Active 3 ml NEB Q4HRRT PRN Atropine [Atropine 0.1 MG/ML] Med 03/09/19 00:35 Active See Dose Instructions IVPUSH ASDIRECTED PRN EPINEPHrine [EPINEPHrine 1:10,000] Med 03/09/19 00:35 Active 1 mg IVPUSH ASDIRECTED PRN Finasteride [Proscar] Med 03/09/19 09:00 Active 5 mg PO DAILY Lidocaine 2% [Xylocaine 2%] Med 03/09/19 00:35 Active See Dose Instructions IVPUSH ASDIRECTED PRN Metoprolol Succinate [Toprol XL] Med 03/09/19 07:30 Active 50 mg PO ACBREAKFAST Montelukast [Singulair] Med 03/09/19 21:00 Active 10 mg PO BEDTIME Nitroglycerin [Nitrostat] Med 03/09/19 00:35 Active 0.4 mg SL ASDIRECTED PRN Pharmacy to Dose - Warfarin Med 03/08/19 22:45 Pending 1 dose .XX ASDIRECTED Ranitidine [Zantac] Med 03/08/19 22:03 Active 150 mg PO DAILY PRN Sodium Chloride 0.9% [Saline Flush] Med 03/08/19 19:32 Active 10 ml FLUSH Q8HR PRN Sodium Chloride 0.9% [Saline Flush] Med 03/08/19 21:04 Active 10 ml FLUSH Q8HR PRN Terazosin [Hytrin] Med 03/09/19 21:00 Active 5 mg PO BEDTIME Warfarin [Coumadin] Med 03/09/19 18:00 Pending 5 mg PO DAILY@1800 lisinopriL [Prinivil] Med 03/09/19 09:00 Active 10 mg PO DAILY Peripheral IV Insertion Adult [OM.PC] Routine Oth 03/08/19 19:32 Ordered Saline Lock Insert [OM.PC] Routine Oth 03/08/19 21:04 Ordered Resuscitation Status Routine Resus Stat 03/08/19 21:04 Ordered EKG 12 Lead [EK] Routine Ther 03/08/19 19:20 Ordered Medication Orders Albuterol/Ipratropium (Duoneb 3.0-0.5 Mg/3 Ml) 3 ml NEB Q4HRRT PRN PRN Reason: Wheezing Last Admin: 03/09/19 09:57 Dose: 3 ml Admin: 03/08/19 23:16 Dose: 3 ml Atropine Sulfate (Atropine 0.1 Mg/Ml) 0 mg IVPUSH ASDIRECTED PRN PRN Reason: Heart. Epinephrine HCl (Epinephrine 1:10,000) 1 mg IVPUSH ASDIRECTED PRN PRN Reason: Heart. Finasteride (Proscar) 5 mg PO DAILY [facility] Last Admin: 03/09/19 09:37 Dose: 5 mg Lidocaine HCl (Xylocaine 2%) 0 mg IVPUSH ASDIRECTED PRN PRN Reason: Heart. Lisinopril (Prinivil) 10 mg PO DAILY [facility] Last Admin: 03/09/19 09:37 Dose: 10 mg Metoprolol Succinate (Toprol Xl) 50 mg PO ACBREAKFAST [facility] Last Admin: 03/09/19 09:40 Dose: 50 mg Montelukast Sodium (Singulair) 10 mg PO BEDTIME [facility] Nitroglycerin (Nitrostat) 0.4 mg SL ASDIRECTED PRN PRN Reason: Heart. Ranitidine HCl (Zantac) 150 mg PO DAILY PRN PRN Reason: Heartburn Sodium Chloride (Saline Flush) 10 ml FLUSH Q8HR PRN PRN Reason: keep vein open Sodium Chloride (Saline Flush) 10 ml FLUSH Q8HR PRN PRN Reason: keep vein open Terazosin HCl (Hytrin) 5 mg PO BEDTIME BRE Warfarin Sodium (Coumadin) 5 mg PO DAILY@1800 [facility] Warfarin Sodium (Pharmacy To Dose - Warfarin) 1 dose .XX ASDIRECTED [facility] Assessment/Plan Comment:: History of present illness 88-year-old gentleman was admitted to the ED last night when he came in complaining of progressive shortness of breath,with increased fatigue and generalized weakness over the last 4 days. Pt currently resides in an [facility] and just returned from [place] after a 4-day trip family. Patient stated he was noticing again although he weighs himself clear also noticed increased swelling in his lower extremities over the last 4 days. Pt denied chest pain, dizziness or diaphoresis. Pt states he felt a little nauseated as night before admission after supper. He has now been on oxygen dependent ~10 days recently being started on supplemental O2 secondary recent hospital stay with bibasilar pneumonia. ED work-up Lasix40 mg x 1 BNP 571 Hospital course Patient with significant diuresis, weight loss, O>I Primary hospital problems --HFpEF, Lasix, ACEI --Hypokalemia --HTN, acutely high likely2/2 hypervolemic state, will titrate up ACEI 2/2 HF to target 20-30 mg/day --Atrial fibrillation, chronic, CVR CHA2 DS2 high, hypercoagulable state, hold Coumadin tonight Chronic/stable problems CAD BPH Disposition/overall plan --Continue inpatient stay, --Ongoing diuresing with Lasix --Add Aldactone 12.5 mg daily --Tele continues --Low-sodium diet --Correct K+ 40meq PO this am, 40meq this pm. --POC, maryse Gorman at bedside, all questions answered - Mortality Measure Prognosis:: Good
[2019-03-09] MEDS: Spironolactone 25 MG Tab PO SCH (11:01)
[2019-03-09] MEDS: Potassium Chloride 20 MEQ Tab.ER PO SCH ×2 (11:01→21:37)
[2019-03-09] MEDS: Furosemide 40 MG/4 ML VIAL IVPUSH SCH (11:04)
[2019-03-09] MEDS ORDERED: Furosemide 40 MG/4 ML VIAL IVPUSH ONE (16:00)
[2019-03-09] MEDS ORDERED: Warfarin 5 MG Tab PO SCH (18:00)
[2019-03-09] MEDS: Terazosin 5 MG Cap PO SCH (21:35)
[2019-03-09] MEDS: Montelukast 10 MG Tab PO SCH (21:37)
[2019-03-10] MEDS: Metoprolol Succinate 25 MG Tab.ER PO SCH (07:35)
[2019-03-10 08:04] LABS: ANION GAP 10.4 mmol/L (5-15)
[2019-03-10] MEDS: Furosemide 40 MG/4 ML VIAL IVPUSH SCH (09:09)
[2019-03-10] MEDS: Spironolactone 25 MG Tab PO SCH (09:10)
[2019-03-10] MEDS: Lisinopril 10 MG Tab PO SCH (09:10)
[2019-03-10] MEDS: Finasteride 5 MG Tab PO SCH (09:10)
[2019-03-10] MEDS: Sodium Chloride 0.9% 10 ML Syringe FLUSH PRN (09:12)
[2019-03-10] MEDS ORDERED: Lisinopril 10 MG Tab PO ONE (09:41)
--- NOTE | 2019-03-10 11:42 | PCM.PN ---
- General Info Date of Service: 03/10/19 Subjective Update: Son, Shiv, at bedside during rounds. Functional Status: Reports: Pain Controlled, Tolerating Diet, Ambulating, Urinating. Denies: New Symptoms - Review of Systems General: Denies: Fever, Weakness, Fatigue, Chills HEENT: Reports: Glasses, Rhinitis. Denies: Headaches, Sinus Congestion, Sore Throat Pulmonary: Denies: Shortness of Breath, Cough Cardiovascular: Reports: Dyspnea on Exertion, Edema. Denies: Chest Pain, Palpitations, Lightheadedness Gastrointestinal: Denies: Constipation, Diarrhea Genitourinary: Reports: No Symptoms Neurological: Denies: Dizziness, Headache, Difficulty Walking Psychiatric: Reports: No Symptoms - Patient Data Vitals - Most Recent: Last Vital Signs Temp 98.5 F 03/10/19 10:54 Pulse 89 03/10/19 10:54 Resp 18 03/10/19 10:54 BP 125/78 03/10/19 10:54 Pulse Ox 94 L 03/10/19 10:54 Weight - Most Recent: 219 lb I&O - Last 24 Hours: Intake & Output 03/09/19 03/10/19 03/10/19 22:59 06:59 14:59 Intake Total 550 250 Output Total 400 700 Balance 150 -450 Lab Results Last 24 Hours: Laboratory Results - last 24 hr 03/10/19 03/10/19 Range/Units 07:15 07:15 PT 31.8 H D (8.9-11.4) SEC INR 3.2 H (0.9-1.1) Sodium 144 (136-145) mmol/L Potassium 4.0 (3.3-5.3) mmol/L Chloride 106 (98-115) mmol/L Carbon Dioxide 31.6 (21.0-32.0) mmol/L Anion Gap 10.4 (5-15) mmol/L BUN 28 H (6-25) mg/dL Creatinine 1.30 H (0.51-1.17) mg/dL Est Cr Clr Drug Dosing 40.13 mL/min Estimated GFR (MDRD) 52 mL/min Glucose 83 (75 - 99) mg/dL Calcium 8.6 L (8.7-10.3) mg/dL Med Orders - Current: Current Medications Albuterol/Ipratropium (Duoneb 3.0-0.5 Mg/3 Ml) 3 ml NEB Q4HRRT PRN PRN Reason: Wheezing Last Admin: 03/09/19 09:57 Dose: 3 ml Atropine Sulfate (Atropine 0.1 Mg/Ml) 0 mg IVPUSH ASDIRECTED PRN PRN Reason: Heart. Epinephrine HCl (Epinephrine 1:10,000) 1 mg IVPUSH ASDIRECTED PRN PRN Reason: Heart. Finasteride (Proscar) 5 mg PO DAILY [facility] Last Admin: 03/10/19 09:10 Dose: 5 mg Furosemide (Lasix) 40 mg PO DAILY [facility] Lidocaine HCl (Xylocaine 2%) 0 mg IVPUSH ASDIRECTED PRN PRN Reason: Heart. Lisinopril (Prinivil) 20 mg PO DAILY [facility] Metoprolol Succinate (Toprol Xl) 50 mg PO ACBREAKFAST [facility] Last Admin: 03/10/19 07:35 Dose: 50 mg Montelukast Sodium (Singulair) 10 mg PO BEDTIME [facility] Last Admin: 03/09/19 21:37 Dose: 10 mg Nitroglycerin (Nitrostat) 0.4 mg SL ASDIRECTED PRN PRN Reason: Heart. Ranitidine HCl (Zantac) 150 mg PO DAILY PRN PRN Reason: Heartburn Sodium Chloride (Saline Flush) 10 ml FLUSH Q8HR PRN PRN Reason: keep vein open Last Admin: 03/10/19 09:12 Dose: 10 ml Spironolactone (Aldactone) 12.5 mg PO DAILY [facility] Last Admin: 03/10/19 09:10 Dose: 12.5 mg Terazosin HCl (Hytrin) 5 mg PO BEDTIME [facility] Last Admin: 03/09/19 21:35 Dose: 5 mg Warfarin Sodium (Pharmacy To Dose - Warfarin) 1 dose .XX ASDIRECTED [facility] Discontinued Medications Furosemide (Lasix) 40 mg IVPUSH NOW ONE Stop: 03/08/19 20:39 Last Admin: 03/08/19 20:52 Dose: 40 mg Furosemide (Lasix) 40 mg IVPUSH DAILY [facility] Last Admin: 03/10/19 09:09 Dose: 40 mg Furosemide (Lasix) 20 mg IVPUSH NOW ONE Stop: 03/09/19 16:01 Last Admin: 03/09/19 17:04 Dose: 20 mg Lisinopril (Prinivil) 10 mg PO DAILY [facility] Last Admin: 03/10/19 09:10 Dose: 10 mg Lisinopril (Prinivil) 10 mg PO ONETIME ONE Stop: 03/09/19 10:33 Last Admin: 03/09/19 11:02 Dose: 10 mg Lisinopril (Prinivil) 10 mg PO ONETIME ONE Stop: 03/10/19 09:42 Last Admin: 03/10/19 10:52 Dose: 10 mg Potassium Chloride (Klor-Con M20) 40 meq PO BID [facility] Stop: 03/09/19 21:01 Last Admin: 03/09/19 21:37 Dose: 40 meq Sodium Chloride (Saline Flush) 10 ml FLUSH Q8HR PRN PRN Reason: keep vein open - Exam Quality Assessment: Supplemental Oxygen (2 lpm nasal cannula, 95%), DVT Prophylaxis (on warfarin) General: Alert, Oriented, Cooperative, No Acute Distress Lungs: Clear to Auscultation, Normal Respiratory Effort Cardiovascular: Regular Rate, Irregular Rhythm, Murmurs (heard throughout the precordium most predominantly at LSB 3/6, systolic) Extremities: Other (1+ pitting edema to BLE, R>L) Skin: Warm, Dry, Intact Neurological: Normal Gait, Normal Speech Psy/Mental Status: Alert, Normal Affect, Normal Mood Sepsis Event Note - Evaluation Sepsis Screening Result: No Definite Risk - Focused Exam Vital Signs: Vital Signs Temp Pulse Pulse Resp BP BP Pulse Ox 03/10/19 10:54 98.5 F 89 18 125/78 94 L 03/10/19 10:52 125/78 03/10/19 09:10 124/91 H 03/10/19 07:35 95 150/110 H 03/10/19 06:39 96.4 F 96 20 128/59 L 95 03/10/19 03:00 96.4 F 95 20 117/77 95 Date Exam was Performed: 03/10/19 Time Exam was Performed: 11:43 - Problem List Review Problem List Initiated/Reviewed/Updated: Yes - My Orders Last 24 Hours: My Active Orders 03/11/19 05:11 BMP [BASIC METABOLIC PANEL,BMP] [CHEM] AM 03/11/19 09:00 Furosemide [Lasix] 40 mg PO DAILY lisinopriL [Prinivil] 20 mg PO DAILY - Plan Plan:: HPI: This is an 88 yo male who was admitted through the ED d/t progressive shortness of breath with increased fatigue and generalized weakness over a period of 4 days. Patient had been in [place] for a 4 day family trip. Patient had noticed a weight increase as well as increased swelling of his lower legs. Patient had been started on oxygen about 10 days prior to admission following a hospital stay for suspected heart failure and chronic hypoxemic respiratory failure. Pertinent ED work-up: BNP 571 Troponin 0.04 Creatinine 1.51 INR 4.3 Hgb 12.5 WBC 5.23 w/o neutrophilia CXR cardiomegaly and central vascular congestion with small bilateral pleural effusions, increased since prior examination Update overnight: Down 1.8 pounds in 24 hours and total of 11 pounds since admission. Patient up in halls with oxygen and no de-saturations reported. Primary Impression/Plan: Acute on chronic combined heart failure, improving. ECHO (02/2019) EF 50%, mildly reduced left ventricular systolic function, grade 3 diastolic dysfunction. Will give dose of IV lasix today then switch to lasix 40 mg po daily tomorrow (03/11). Continue with daily weights, I&O. Continue lisinopril 20 mg daily, toprol XL 50 mg daily, and spironolactone 12.5 mg daily. Hypokalemia, resolved. K 4.0. Recheck in AM. HTN. This has been improving from 110-130s systolic with a one time 150 systolic reading in the last 24 hours. Continue lisinopril, toprol XL as above and titrate as needed. Atrial fibrillation, chronic. INR 3.2. Pharmacy to dose warfarin. HR 70-90 bpm. Dc telemetry. CKD stage III. Creatinine improved to 1.30. Secondary Impression/Plan: Pulmonary HTN, severe. Mild-moderate aortic stenosis. Moderate mitral & tricuspid regurgitation. Chronic allergic rhinitis. Continue Singulair. Chronic hypoxemic respiratory failure. 2 lpm. Will add humidification to this d/ t nasal dryness. Continue DuoNebs PRN. Hypocalcemia. Borderline low at 8.6. Hyperbilirubinemia. 2.2 on admission. Recheck in AM. Obesity. Hypomagnesemia. Recheck in AM. On magnesium. Thrombocytopenia. Plts 107 on admission. Recheck in AM. GERD. Continue zantac PRN. BPH with urinary frequency. Continue proscar, terazosin. History of prostate CA. DVT prophylaxis. On warfarin. Overall plan: Continue with diuresis and monitoring of hemodynamic status. Patient up in halls walking. Will switch diuretic to oral in the AM. Repeat labs in AM. Anticipate discharge in 1-2 days.
[2019-03-10] MEDS ORDERED: Warfarin 2.5 MG Tab PO ONE (18:00)
[2019-03-10] MEDS: Terazosin 5 MG Cap PO SCH (20:58)
[2019-03-10] MEDS: Montelukast 10 MG Tab PO SCH (20:58)
[2019-03-10] MEDS: Magnesium Oxide 500 MG Tab PO SCH (20:58)
[2019-03-10] MEDS: Melatonin 3 MG Tab PO PRN (20:59)
[2019-03-10] MEDS ORDERED: Non-Formulary Medication 1 Each (Magnesium Oxide [Magnesium Oxide] 400 MG) PO SCH (21:00)
[2019-03-11] MEDS: Furosemide 40 MG Tab PO SCH (08:18)
[2019-03-11] MEDS: Finasteride 5 MG Tab PO SCH (08:18)
[2019-03-11] MEDS: Spironolactone 25 MG Tab PO SCH (08:18)
[2019-03-11] MEDS: Sodium Chloride 0.9% 10 ML Syringe FLUSH PRN (08:19)
[2019-03-11] MEDS: Metoprolol Succinate 25 MG Tab.ER PO SCH (08:20)
[2019-03-11] MEDS: Lisinopril 20 MG Tab PO SCH (08:20)
[2019-03-11] MEDS ORDERED: Spironolactone 25 MG Tab PO ONE (09:41)
[2019-03-11] MEDS ORDERED: Metoprolol Succinate 25 MG Tab.ER PO ONE (09:42)
--- NOTE | 2019-03-11 09:55 | PCM.PN ---
- General Info Date of Service: 03/11/19 Subjective Update: Patient states that he didn't realize he was so anxious about his current circumstances. He was given melatonin last night at bedtime to help him relax and fall asleep, which he states helped. Denies feelings of depression. He is a bit nervous about the move from his house to the assisted living, but understands that he needs to avoid stairs. He is optimistic at this time. Functional Status: Reports: Pain Controlled, Tolerating Diet, Ambulating, Urinating. Denies: New Symptoms - Review of Systems General: Denies: Fever, Weakness, Fatigue, Chills HEENT: Reports: Glasses. Denies: Headaches Pulmonary: Denies: Shortness of Breath, Cough Cardiovascular: Reports: Dyspnea on Exertion, Edema. Denies: Chest Pain, Lightheadedness Neurological: Denies: Dizziness, Headache Psychiatric: Reports: Anxiety. Denies: Depression - Patient Data Vitals - Most Recent: Last Vital Signs Temp 96.1 F 03/11/19 06:44 Pulse 88 03/11/19 08:20 Resp 18 03/11/19 06:44 BP 140/87 03/11/19 08:20 Pulse Ox 95 03/11/19 06:44 Weight - Most Recent: 217 lb 1.6 oz I&O - Last 24 Hours: Intake & Output 03/10/19 03/11/19 03/11/19 22:59 06:59 14:59 Intake Total 750 150 Output Total 550 Balance 200 150 Lab Results Last 24 Hours: Laboratory Results - last 24 hr 03/11/19 03/11/19 03/11/19 Range/Units 06:58 06:58 06:58 WBC 4.10 L (5.00-10.00) 10^3/uL RBC 4.19 L (4.50-6.00) 10^6/uL Hgb 12.5 L (13.0-17.0) g/dL Hct 39.5 L (40.0-52.0) % MCV 94.3 H (82.0-92.0) fL MCH 29.8 (27.0-31.0) pg MCHC 31.6 L (32.0-36.0) g/dL RDW 15.7 H (11.5-14.5) % Plt Count 93 L (150-400) 10^3/uL MPV 12.2 H (7.4-10.4) fL Immature Gran % (Auto) 0.0 (0.0-5.0) % Neut % (Auto) 54.7 (50.0-70.0) % Lymph % (Auto) 27.8 (20.0-40.0) % [place] % (Auto) 14.1 H (2.0-8.0) % Eos % (Auto) 2.4 (1.0-3.0) % Baso % (Auto) 1.0 (0.0-1.0) % Immature Gran # (Auto) 0.00 (0.00-0.50) 10^3/uL Neut # (Auto) 2.24 L (2.50-7.00) 10^3/uL Lymph # (Auto) 1.14 (1.00-4.00) 10^3/uL [place] # (Auto) 0.58 (0.10-0.80) 10^3/uL Eos # (Auto) 0.10 (0.10-0.30) 10^3/uL Baso # (Auto) 0.04 (0.00-0.10) 10^3/uL PT 25.9 H (8.9-11.4) SEC INR 2.6 H (0.9-1.1) Sodium 153 H (136-145) mmol/L Potassium 3.5 (3.3-5.3) mmol/L Chloride 110 (98-115) mmol/L Carbon Dioxide 32.5 H (21.0-32.0) mmol/L Anion Gap 14.0 (5-15) mmol/L BUN 27 H (6-25) mg/dL Creatinine 1.36 H (0.51-1.17) mg/dL Est Cr Clr Drug Dosing 38.35 mL/min Estimated GFR (MDRD) 50 mL/min Glucose 83 (75 - 99) mg/dL Calcium 8.7 (8.7-10.3) mg/dL Magnesium 1.9 (1.8-2.4) mg/dL Total Bilirubin 2.2 H (0.2-1.0) mg/dL AST 33 (15-37) U/L ALT 42 (12-78) U/L Alkaline Phosphatase 102 (46-116) IU/L Total Protein 5.9 L (6.4-8.2) g/dL Albumin 3.02 (3.00-4.80) g/dL 03/11/19 Range/Units 08:48 WBC (5.00-10.00) 10^3/uL RBC (4.50-6.00) 10^6/uL Hgb (13.0-17.0) g/dL Hct (40.0-52.0) % MCV (82.0-92.0) fL MCH (27.0-31.0) pg MCHC (32.0-36.0) g/dL RDW (11.5-14.5) % Plt Count (150-400) 10^3/uL MPV (7.4-10.4) fL Immature Gran % (Auto) (0.0-5.0) % Neut % (Auto) (50.0-70.0) % Lymph % (Auto) (20.0-40.0) % [place] % (Auto) (2.0-8.0) % Eos % (Auto) (1.0-3.0) % Baso % (Auto) (0.0-1.0) % Immature Gran # (Auto) (0.00-0.50) 10^3/uL Neut # (Auto) (2.50-7.00) 10^3/uL Lymph # (Auto) (1.00-4.00) 10^3/uL [place] # (Auto) (0.10-0.80) 10^3/uL Eos # (Auto) (0.10-0.30) 10^3/uL Baso # (Auto) (0.00-0.10) 10^3/uL PT (8.9-11.4) SEC INR (0.9-1.1) Sodium 146 H (136-145) mmol/L Potassium (3.3-5.3) mmol/L Chloride (98-115) mmol/L Carbon Dioxide (21.0-32.0) mmol/L Anion Gap (5-15) mmol/L BUN (6-25) mg/dL Creatinine (0.51-1.17) mg/dL Est Cr Clr Drug Dosing mL/min Estimated GFR (MDRD) mL/min Glucose (75 - 99) mg/dL Calcium (8.7-10.3) mg/dL Magnesium (1.8-2.4) mg/dL Total Bilirubin (0.2-1.0) mg/dL AST (15-37) U/L ALT (12-78) U/L Alkaline Phosphatase (46-116) IU/L Total Protein (6.4-8.2) g/dL Albumin (3.00-4.80) g/dL Med Orders - Current: Current Medications Albuterol/Ipratropium (Duoneb 3.0-0.5 Mg/3 Ml) 3 ml NEB Q4HRRT PRN PRN Reason: Wheezing Last Admin: 03/09/19 09:57 Dose: 3 ml Finasteride (Proscar) 5 mg PO DAILY [facility] Last Admin: 03/11/19 08:18 Dose: 5 mg Furosemide (Lasix) 40 mg PO DAILY [facility] Last Admin: 03/11/19 08:18 Dose: 40 mg Lisinopril (Prinivil) 20 mg PO DAILY [facility] Last Admin: 03/11/19 08:20 Dose: 20 mg Magnesium Oxide (Magnesium Oxide) 500 mg PO BEDTIME [facility] Last Admin: 03/10/19 20:58 Dose: 500 mg Melatonin (Melatonin) 3 mg PO BEDTIME PRN PRN Reason: Insomnia Last Admin: 03/10/19 20:59 Dose: 3 mg Metoprolol Succinate (Toprol Xl) 25 mg PO ONETIME ONE Stop: 03/11/19 09:43 Metoprolol Succinate (Toprol Xl) 75 mg PO DAILY [facility] Montelukast Sodium (Singulair) 10 mg PO BEDTIME [facility] Last Admin: 03/10/19 20:58 Dose: 10 mg Ranitidine HCl (Zantac) 150 mg PO DAILY PRN PRN Reason: Heartburn Sodium Chloride (Saline Flush) 10 ml FLUSH Q8HR PRN PRN Reason: keep vein open Last Admin: 03/11/19 08:19 Dose: 10 ml Spironolactone (Aldactone) 12.5 mg PO ONETIME ONE Stop: 03/11/19 09:42 Spironolactone (Aldactone) 25 mg PO DAILY [facility] Terazosin HCl (Hytrin) 5 mg PO BEDTIME [facility] Last Admin: 03/10/19 20:58 Dose: 5 mg Warfarin Sodium (Pharmacy To Dose - Warfarin) 1 dose .XX ASDIRECTED [facility] Discontinued Medications Atropine Sulfate (Atropine 0.1 Mg/Ml) 0 mg IVPUSH ASDIRECTED PRN PRN Reason: Heart. Epinephrine HCl (Epinephrine 1:10,000) 1 mg IVPUSH ASDIRECTED PRN PRN Reason: Heart. Furosemide (Lasix) 40 mg IVPUSH NOW ONE Stop: 03/08/19 20:39 Last Admin: 03/08/19 20:52 Dose: 40 mg Furosemide (Lasix) 40 mg IVPUSH DAILY [facility] Last Admin: 03/10/19 09:09 Dose: 40 mg Furosemide (Lasix) 20 mg IVPUSH NOW ONE Stop: 03/09/19 16:01 Last Admin: 03/09/19 17:04 Dose: 20 mg Lidocaine HCl (Xylocaine 2%) 0 mg IVPUSH ASDIRECTED PRN PRN Reason: Heart. Lisinopril (Prinivil) 10 mg PO DAILY [facility] Last Admin: 03/10/19 09:10 Dose: 10 mg Lisinopril (Prinivil) 10 mg PO ONETIME ONE Stop: 03/09/19 10:33 Last Admin: 03/09/19 11:02 Dose: 10 mg Lisinopril (Prinivil) 10 mg PO ONETIME ONE Stop: 03/10/19 09:42 Last Admin: 03/10/19 10:52 Dose: 10 mg Metoprolol Succinate (Toprol Xl) 50 mg PO ACBREAKFAST [facility] Last Admin: 03/11/19 08:20 Dose: 50 mg Nitroglycerin (Nitrostat) 0.4 mg SL ASDIRECTED PRN PRN Reason: Heart. Non-Formulary Medication (Magnesium Oxide [Magnesium Oxide]) 400 mg PO BEDTIME [facility] Potassium Chloride (Klor-Con M20) 40 meq PO BID [facility] Stop: 03/09/19 21:01 Last Admin: 03/09/19 21:37 Dose: 40 meq Sodium Chloride (Saline Flush) 10 ml FLUSH Q8HR PRN PRN Reason: keep vein open Spironolactone (Aldactone) 12.5 mg PO DAILY [facility] Last Admin: 03/11/19 08:18 Dose: 12.5 mg Warfarin Sodium (Coumadin) 2.5 mg PO ONETIME ONE Stop: 03/10/19 18:01 Last Admin: 03/10/19 18:20 Dose: 2.5 mg - Exam Quality Assessment: Supplemental Oxygen (2 liters per nasal cannula, 95%), DVT Prophylaxis (on warfarin). No: Urine Catheter General: Alert, Oriented (x3), Cooperative, No Acute Distress Lungs: Clear to Auscultation, Normal Respiratory Effort Cardiovascular: Regular Rate, Irregular Rhythm, Murmurs (heard throughout the precordium, most predominant at apex and LSB 3/6, systolic) Extremities: Other (trace-1+ pitting edema to BLE) Skin: Warm, Dry, Intact Neurological: Normal Speech Psy/Mental Status: Alert, Normal Affect, Normal Mood. No: Suicidal Ideation, Homicidal Ideation, Hallucinations Sepsis Event Note - Evaluation Sepsis Screening Result: No Definite Risk - Focused Exam Vital Signs: Vital Signs Temp Pulse Pulse Resp BP BP BP 03/11/19 08:20 88 140/87 03/11/19 06:44 96.1 F 83 18 129/84 03/11/19 03:00 97.4 F 83 20 123/76 03/10/19 23:00 97.3 F 90 16 112/71 Pulse Ox Pulse Ox 03/11/19 08:20 03/11/19 06:44 95 03/11/19 03:00 93 L 03/10/19 23:00 93 L 93 L Date Exam was Performed: 03/11/19 Time Exam was Performed: 09:57 - Problem List Review Problem List Initiated/Reviewed/Updated: Yes - My Orders Last 24 Hours: My Active Orders 03/10/19 14:49 Melatonin 3 mg PO BEDTIME PRN 03/11/19 09:00 Furosemide [Lasix] 40 mg PO DAILY lisinopriL [Prinivil] 20 mg PO DAILY 03/11/19 09:41 Spironolactone [Aldactone] 12.5 mg PO ONETIME ONE 03/11/19 09:42 Metoprolol Succinate [Toprol XL] 25 mg PO ONETIME ONE 03/12/19 05:11 BASIC METABOLIC PANEL,BMP [CHEM] AM 03/12/19 09:00 Metoprolol Succinate [Toprol XL] 75 mg PO DAILY Spironolactone [Aldactone] 25 mg PO DAILY - Plan Plan:: HPI: This is an 88 yo male who was admitted through the ED d/t progressive shortness of breath with increased fatigue and generalized weakness over a period of 4 days. Patient had been in [place] for a 4 day family trip. Patient had noticed a weight increase as well as increased swelling of his lower legs. Patient had been started on oxygen about 10 days prior to admission following a hospital stay for suspected heart failure and chronic hypoxemic respiratory failure. Pertinent ED work-up: BNP 571 Troponin 0.04 Creatinine 1.51 INR 4.3 Hgb 12.5 WBC 5.23 w/o neutrophilia CXR cardiomegaly and central vascular congestion with small bilateral pleural effusions, increased since prior examination Update overnight: Down 2 pounds in 24 hours. Total of 13 pounds since admission. Patient slept well after a dose of melatonin last night. Primary Impression/Plan: Acute on chronic combined heart failure, improving. Lasix 40 mg po daily, increase spironolactone to 25 mg daily, lisinopril 20 mg daily, increase toprol XL to 75 mg daily. Continue with daily weights and accurate I&O. ECHO (02/2019) EF 50%, mildly reduced left ventricular systolic function, grade 3 diastolic dysfunction. Hypokalemia, resolved. K 3.5. Increase in spironolactone should help with this and should avoid the need to supplement oral potassium. Recheck in AM. HTN. BP 120-140 systolic with several diastolic readings >90. See medication adjustments above. Atrial fibrillation, chronic. INR 2.6. Pharmacy to dose warfarin. HR 80-108 bpm. See toprol XL adjustment. CKD stage III, stable. Creatinine 1.36, GFR 50. Situational anxiety. Denies need for medication or counseling at this time. Psychophysiological insomnia. Continue melatonin at HS. Secondary Impression/Plan: Pulmonary HTN, severe. Mild-moderate aortic stenosis. Moderate mitral & tricuspid regurgitation. Chronic allergic rhinitis. Continue Singulair. Chronic hypoxemic respiratory failure. 2 lpm. Will add humidification to this d/ t nasal dryness. Continue DuoNebs PRN. Hypocalcemia. Ca 8.7. Hyperbilirubinemia. Total bilirubin 2.2, unchanged. Obesity. Hypomagnesemia. Mg 1.9. Continue supplementation. Thrombocytopenia. Plts 93. No signs of active bleeding. GERD. Continue zantac PRN. BPH with urinary frequency. Continue proscar, terazosin. History of prostate CA. DVT prophylaxis. On warfarin. Overall plan: Adjust medication regimen slightly and monitor hemodynamic status. Likely can be discharged in the morning with close clinic follow-up later this week.
[2019-03-11] MEDS ORDERED: Warfarin 2.5 MG Tab PO ONE (18:00)
[2019-03-11] MEDS: Terazosin 5 MG Cap PO SCH (21:30)
[2019-03-11] MEDS: Montelukast 10 MG Tab PO SCH (21:31)
[2019-03-11] MEDS: Magnesium Oxide 500 MG Tab PO SCH (21:31)
[2019-03-11] MEDS: Melatonin 3 MG Tab PO PRN (21:31)
[2019-03-12] MEDS ORDERED: Spironolactone 25 MG Tab PO SCH (09:00)
[2019-03-12] MEDS ORDERED: Metoprolol Succinate 25 MG Tab.ER PO SCH (09:00)
[2019-03-12] MEDS: Furosemide 40 MG Tab PO SCH (09:19)
[2019-03-12] MEDS: Lisinopril 20 MG Tab PO SCH (09:19)
[2019-03-12] MEDS: Finasteride 5 MG Tab PO SCH (09:19)
[2019-03-12] MEDS ORDERED: Potassium Chloride 20 MEQ Tab.ER PO ONE (09:35)
--- NOTE | 2019-03-12 09:55 | PCM.DCSUM1 ---
Discharge Summary - Discharge Data Discharge Date: 03/12/19 Discharge Disposition: Home, Self-Care 01 Condition: Good - Referral to Home Health Primary Care Physician: Flora Tello PA-C - Patient Summary/Data Complications: None Labs Pending at D/C: None - Patient Instructions Diet: Heart Healthy Diet, Low Sodium Activity: As Tolerated, Elevate Extremity Showering/Bathing: May Shower Notify Provider of: Fever (chest pain/tightness, shortness of breath, weight gain) Other/Special Instructions: Monitor you weight every day and notify your provider if you gain 2-3 pounds in 2 days. Your discharge weight from the hospital is 217 lbs. [facility] has been notified of your INR today and will be in contact with you to determine the dose of warfarin ( coumadin) you should take. - Discharge Plan *PRESCRIPTION DRUG MONITORING PROGRAM REVIEWED*: Not Applicable *COPY OF PRESCRIPTION DRUG MONITORING REPORT IN PATIENT KAVITA: Not Applicable Prescriptions/Med Rec: Furosemide [Lasix] 40 mg PO DAILY #90 tablet lisinopriL [Lisinopril] 40 mg PO DAILY #90 tablet Melatonin 3 mg PO BEDTIME PRN #90 tablet PRN Reason: Insomnia Metoprolol Succinate [Toprol Xl] 25 mg PO DAILY #90 tab.er.24h Metoprolol Succinate [Toprol Xl] 50 mg PO DAILY #90 tab.er.24h Spironolactone [Aldactone] 25 mg PO DAILY #90 tablet Home Medications: Home Meds Finasteride [Proscar] 5 mg PO DAILY 03/14/13 [History] Magnesium Oxide 400 mg PO BEDTIME 03/14/13 [History] Montelukast [Singulair] 10 mg PO BEDTIME 03/14/13 [History] Terazosin [Hytrin] 5 mg PO BEDTIME 03/14/13 [History] Warfarin [Coumadin] 5 mg PO ASDIRECTED 03/14/13 [History] Chlorpheniramine Maleate [Allergy Relief] 12 mg PO DAILY PRN 02/11/19 [History] Multivit-Min/FA/Lycopen/Lutein [Centrum Silver Men Tablet] 1 each PO DAILY 02/11 [History] Ranitidine [Zantac] 150 mg PO DAILY PRN 02/11/19 [History] Ipratropium [Atrovent 0.06% Nasal [place]] 2 spray NASBOTH Q6H PRN #1 bottle 02/12 [Rx] Furosemide [Lasix] 40 mg PO DAILY #90 tablet 03/12/19 [Rx] Melatonin 3 mg PO BEDTIME PRN #90 tablet 03/12/19 [Rx] Metoprolol Succinate [Toprol Xl] 25 mg PO DAILY #90 tab.er.24h 03/12/19 [Rx] Metoprolol Succinate [Toprol Xl] 50 mg PO DAILY #90 tab.er.24h 03/12/19 [Rx] Spironolactone [Aldactone] 25 mg PO DAILY #90 tablet 03/12/19 [Rx] lisinopriL [Lisinopril] 40 mg PO DAILY #90 tablet 03/12/19 [Rx] Oxygen Therapy Mode: Nasal Cannula Oxygen Flow Rate (L/min): 2 Forms: ED Department Discharge Referrals: Razia Franklin MD [Physician] - ([facility] will call you to set up an appointment on 03/15 or 03/16 of this week.) - Discharge Summary/Plan Comment DC Time >30 min.: Yes Discharge Summary/Plan Comment: Date of admission: 03/08/19 Date of discharge: 03/12/19 Admitting diagnosis: Primary: 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 Secondary: Chronic atrial fibrillation, CKD stage III, Severe PAH, Mild- moderate aortic stenosis, Moderate mitral and tricuspid regurgitation, Chronic allergic rhinitis, Chronic hypoxemic respiratory failure, Hypocalcemia, Hyperbilirubinemia, Obesity, Hypomagnesemia, Thrombocytopenia, GERD, BPH with urinary frequency, History of prostate CA Brief History: This is an 88 yo male who was admitted through the ED d/t progressive shortness of breath with increased fatigue and generalized weakness over a period of 4 days. Patient had been in [place] for a 4 day family trip. Patient had noticed a weight increase as well as increased swelling of his lower legs. Patient had been started on oxygen about 10 days prior to admission following a hospital stay for heart failure and chronic hypoxemic respiratory failure. Pertinent ED work-up: BNP 571 Troponin 0.04 Creatinine 1.51 INR 4.3 Hgb 12.5 WBC 5.23 w/o neutrophilia CXR cardiomegaly and central vascular congestion with small bilateral pleural effusions, increased since prior examination Hospital Course: The patient's hospital course progressed as expected. He was given IV lasix the first 3 days and then switched to oral. He had excellent diuresis with a total of 13 pounds lost. Discharge weight 217 lbs. He required one day of oral potassium replacement with correction noted. He had the addition and slow titration of heart failure medications as noted below. He remained hemodynamically stable and afebrile. He was continued on his home oxygen dose of 2 liters per nasal cannula. He was monitored with telemetry without any adverse events reported. His INR was supratherapeutic on admission and did trend down to normal; this was monitored and warfarin adjusted by pharmacy. He did experience some feelings of anxiety particularly at nighttime. He was given melatonin 3 mg at HS with some improvement. Denied the need for additional medication or counseling. Discharge labs: INR 2.5 ([facility] was notified in Epic of this and was asked to contact patient with dosing instructions.) K 3.3 (Gave potassium 20 mEq po x 1 prior to discharge) Creatinine 1.34 GFR 51 New medications at discharge: -Spironolactone 25 mg po daily -Melatonin 3 mg po at HS PRN Changes to home medications on discharge: -Increased toprol XL to 75 mg po daily -Increased lisinopril to 40 mg po daily -Increased furosemide to 40 mg po daily Regular home medications on discharge: -Allergy Relief 12 mg po daily PRN -Terazosin 5 mg po at HS -Ranitidine 150 mg po daily PRN -Centrum Silver 1 tab po daily -Singulair 10 mg po at HS -Magnesium oxide 400 mg po at HS -Atrovent 0.06% 2 sprays to both nostrils q6h PRN -Finasteride 5 mg po daily -Warfarin as directed Condition, Treatment & Final Disposition: The patient is in stable condition at the time of discharge. He will be discharged home to Assisted Living with his son. He will be seen in follow-up later this week by Dr. Franklin. He has an appointment with cardiology on 04/05/19. Considerations at follow-up include obtaining a BMP. - General Info Date of Service: 03/12/19 Functional Status: Reports: Pain Controlled, Tolerating Diet, Ambulating, Urinating. Denies: New Symptoms - Review of Systems General: Reports: Fatigue. Denies: Fever, Weakness, Chills HEENT: Reports: Glasses. Denies: Headaches Pulmonary: Denies: Shortness of Breath, Cough Cardiovascular: Reports: Dyspnea on Exertion, Edema. Denies: Chest Pain, Lightheadedness Gastrointestinal: Denies: Abdominal Pain, Constipation, Diarrhea, Nausea, Vomiting Genitourinary: Reports: No Symptoms Neurological: Denies: Dizziness, Headache Psychiatric: Reports: Anxiety. Denies: Depression - Patient Data Vitals - Most Recent: Last Vital Signs Temp 97.4 F 03/12/19 07:00 Pulse 83 03/12/19 09:19 Resp 16 03/12/19 07:00 BP 106/63 03/12/19 09:19 Pulse Ox 95 03/12/19 07:00 Weight - Most Recent: 217 lb 8 oz I&O - Last 24 hours: Intake & Output 03/11/19 03/12/19 03/12/19 22:59 06:59 14:59 Intake Total 700 200 Output Total 400 350 Balance 300 -150 Lab Results - Last 24 hrs: Laboratory Results - last 24 hr 03/12/19 03/12/19 Range/Units 07:00 07:00 PT 24.4 H (8.9-11.4) SEC INR 2.5 H (0.9-1.1) Sodium 144 (136-145) mmol/L Potassium 3.3 (3.3-5.3) mmol/L Chloride 104 (98-115) mmol/L Carbon Dioxide 32.3 H (21.0-32.0) mmol/L Anion Gap 11.0 (5-15) mmol/L BUN 28 H (6-25) mg/dL Creatinine 1.34 H (0.51-1.17) mg/dL Est Cr Clr Drug Dosing 38.93 mL/min Estimated GFR (MDRD) 51 mL/min Glucose 81 (75 - 99) mg/dL Calcium 8.6 L (8.7-10.3) mg/dL Med Orders - Current: Current Medications Albuterol/Ipratropium (Duoneb 3.0-0.5 Mg/3 Ml) 3 ml NEB Q4HRRT PRN PRN Reason: Wheezing Last Admin: 03/09/19 09:57 Dose: 3 ml Finasteride (Proscar) 5 mg PO DAILY [facility] Last Admin: 03/12/19 09:19 Dose: 5 mg Furosemide (Lasix) 40 mg PO DAILY [facility] Last Admin: 03/12/19 09:19 Dose: 40 mg Lisinopril (Prinivil) 20 mg PO DAILY [facility] Last Admin: 03/12/19 09:19 Dose: 20 mg Lisinopril (Prinivil) 20 mg PO ONETIME ONE Stop: 03/12/19 10:01 Magnesium Oxide (Magnesium Oxide) 500 mg PO BEDTIME [facility] Last Admin: 03/11/19 21:31 Dose: 500 mg Melatonin (Melatonin) 3 mg PO BEDTIME PRN PRN Reason: Insomnia Last Admin: 03/11/19 21:31 Dose: 3 mg Metoprolol Succinate (Toprol Xl) 75 mg PO DAILY [facility] Last Admin: 03/12/19 09:19 Dose: 75 mg Montelukast Sodium (Singulair) 10 mg PO BEDTIME [facility] Last Admin: 03/11/19 21:31 Dose: 10 mg Ranitidine HCl (Zantac) 150 mg PO DAILY PRN PRN Reason: Heartburn Sodium Chloride (Saline Flush) 10 ml FLUSH Q8HR PRN PRN Reason: keep vein open Last Admin: 03/11/19 08:19 Dose: 10 ml Spironolactone (Aldactone) 25 mg PO DAILY [facility] Last Admin: 03/12/19 09:19 Dose: 25 mg Terazosin HCl (Hytrin) 5 mg PO BEDTIME [facility] Last Admin: 03/11/19 21:30 Dose: 5 mg Warfarin Sodium (Pharmacy To Dose - Warfarin) 1 dose .XX ASDIRECTED [facility] Discontinued Medications Atropine Sulfate (Atropine 0.1 Mg/Ml) 0 mg IVPUSH ASDIRECTED PRN PRN Reason: Heart. Epinephrine HCl (Epinephrine 1:10,000) 1 mg IVPUSH ASDIRECTED PRN PRN Reason: Heart. Furosemide (Lasix) 40 mg IVPUSH NOW ONE Stop: 03/08/19 20:39 Last Admin: 03/08/19 20:52 Dose: 40 mg Furosemide (Lasix) 40 mg IVPUSH DAILY [facility] Last Admin: 03/10/19 09:09 Dose: 40 mg Furosemide (Lasix) 20 mg IVPUSH NOW ONE Stop: 03/09/19 16:01 Last Admin: 03/09/19 17:04 Dose: 20 mg Lidocaine HCl (Xylocaine 2%) 0 mg IVPUSH ASDIRECTED PRN PRN Reason: Heart. Lisinopril (Prinivil) 10 mg PO DAILY [facility] Last Admin: 03/10/19 09:10 Dose: 10 mg Lisinopril (Prinivil) 10 mg PO ONETIME ONE Stop: 03/09/19 10:33 Last Admin: 03/09/19 11:02 Dose: 10 mg Lisinopril (Prinivil) 10 mg PO ONETIME ONE Stop: 03/10/19 09:42 Last Admin: 03/10/19 10:52 Dose: 10 mg Metoprolol Succinate (Toprol Xl) 50 mg PO ACBREAKFAST [facility] Last Admin: 03/11/19 08:20 Dose: 50 mg Metoprolol Succinate (Toprol Xl) 25 mg PO ONETIME ONE Stop: 03/11/19 09:43 Last Admin: 03/11/19 10:50 Dose: 25 mg Nitroglycerin (Nitrostat) 0.4 mg SL ASDIRECTED PRN PRN Reason: Heart. Non-Formulary Medication (Magnesium Oxide [Magnesium Oxide]) 400 mg PO BEDTIME [facility] Potassium Chloride (Klor-Con M20) 40 meq PO BID [facility] Stop: 03/09/19 21:01 Last Admin: 03/09/19 21:37 Dose: 40 meq Potassium Chloride (Klor-Con M20) 20 meq PO ONETIME ONE Stop: 03/12/19 09:36 Sodium Chloride (Saline Flush) 10 ml FLUSH Q8HR PRN PRN Reason: keep vein open Spironolactone (Aldactone) 12.5 mg PO DAILY [facility] Last Admin: 03/11/19 08:18 Dose: 12.5 mg Spironolactone (Aldactone) 12.5 mg PO ONETIME ONE Stop: 03/11/19 09:42 Last Admin: 03/11/19 10:49 Dose: 12.5 mg Warfarin Sodium (Coumadin) 2.5 mg PO ONETIME ONE Stop: 03/10/19 18:01 Last Admin: 03/10/19 18:20 Dose: 2.5 mg Warfarin Sodium (Coumadin) 2.5 mg PO ONETIME ONE Stop: 03/11/19 18:01 Last Admin: 03/11/19 18:18 Dose: 2.5 mg - Exam Quality Assessment: Reports: Supplemental Oxygen (2 lpm), DVT Prophylaxis (on warfarin) General: Reports: Alert, Oriented (x3), Cooperative, No Acute Distress Lungs: Reports: Normal Respiratory Effort, Decreased Breath Sounds (throughout) . Denies: Crackles, Wheezing Cardiovascular: Reports: Regular Rate, Irregular Rhythm, Murmurs (heard throughout precordium, most predominant at apex and LSB 3/6, systolic) Extremities: Other (1+ pitting edema to BLE) Skin: Reports: Warm, Dry, Intact Neurological: Reports: Normal Speech, Normal Tone Psy/Mental Status: Reports: Alert, Normal Affect, Normal Mood. Denies: Suicidal Ideation, Homicidal Ideation, Hallucinations
[2019-03-12] MEDS ORDERED: Lisinopril 20 MG Tab PO ONE (10:00)
== END 2019-03-12 13:20 | disposition home or self-care (01) | DRG 291 ==
LOC: KA.ED 19:00 → KA.MS 21:03 → KA.ED 21:05 → UNDOADMIN 21:54 → KA.MS 21:54 → UNDODISIN 03-12 13:20
PROVIDERS: ADMIT Physician Assistant Medical; ATTEND Family Medicine
DX: I11.0 Hypertensive heart disease with heart failure (principal); I50.9 Heart failure, unspecified; I13.0 Hypertensive heart and chronic kidney disease with heart failure and stage 1 through stage 4 chronic kidney disease, or unspecified chronic kidney disease; I50.43 Acute on chronic combined systolic (congestive) and diastolic (congestive) heart failure; J96.11 Chronic respiratory failure with hypoxia; I48.20 Chronic atrial fibrillation, unspecified; N42.9 Disorder of prostate, unspecified; N18.3 Chronic kidney disease, stage 3 (moderate); E87.6 Hypokalemia; I27.21 Secondary pulmonary arterial hypertension; I08.1 Rheumatic disorders of both mitral and tricuspid valves; J30.9 Allergic rhinitis, unspecified; E83.51 Hypocalcemia; E80.6 Other disorders of bilirubin metabolism; E66.9 Obesity, unspecified; E83.42 Hypomagnesemia; D69.6 Thrombocytopenia, unspecified; K21.9 Gastro-esophageal reflux disease without esophagitis; N40.1 Benign prostatic hyperplasia with lower urinary tract symptoms; R35.0 Frequency of micturition; R79.1 Abnormal coagulation profile; I25.10 Atherosclerotic heart disease of native coronary artery without angina pectoris; F51.04 Psychophysiologic insomnia; F41.9 Anxiety disorder, unspecified; H54.7 Unspecified visual loss; H91.90 Unspecified hearing loss, unspecified ear; Z85.46 Personal history of malignant neoplasm of prostate; Z91.018 Allergy to other foods; Z88.8 Allergy status to other drugs, medicaments and biological substances; Z79.01 Long term (current) use of anticoagulants; Z79.899 Other long term (current) drug therapy; Z98.49 Cataract extraction status, unspecified eye; Z87.891 Personal history of nicotine dependence; Z99.81 Dependence on supplemental oxygen; Z68.32 Body mass index [BMI] 32.0-32.9, adult
CPT/HCPCS: 36415; 71046; 80048; 80053; 82550; 82553; 83735; 83880; 84295; 84484; 85025; 85610; 85730; 93005; 94640; 99284; A9270-GY; J1940; J7620-GY

== ENCOUNTER 2020-04-07 09:34 | Emergency (ER) | payer MEDICARE, BC ==
--- NOTE | 2020-04-07 10:05 | EDM.PDOC ---
ED HPI GENERAL MEDICAL PROBLEM - General Stated Complaint: UNRESPONSIVE Time Seen by Provider: 04/07/20 09:51 Source of Information: Reports: Patient, EMS, Old Records History Limitations: Reports: No Limitations - History of Present Illness INITIAL COMMENTS - FREE TEXT/NARRATIVE: Patient presents via EMS after a syncopal episode with approximately 5 minutes of unresponsiveness. He lives in assisted living. He says he was feeling well, had breakfast with a small glass of orange juice, glass of water, glass of milk. He usually drinks a glass of water when he goes down to dinner and before bed. He thinks he drinks some in between but has been told he needs to drink more water. After breakfast, the nurse was with him. He took a hot shower and started feeling a little dizzy when he got out. He dried off and sat down on the toilet to pull his pants on. The nurse reports that she saw him start to faint while he was doing this. She supported him and he was unresponsive. She called 911. EMS was there in 5 minutes and found him still unresponsive still sitting on the toilet. No response to sternal rub. HR in the 50's, sats 91%. They moved him to the floor and immediately he regained consciousness and began talking to them completely coherent. Glucose 125. Patient remembers drying off and then EMS with him. He has had a pacemaker for 2-3 years. He also had surgery on a heart valve a year ago and has been in assisted living since then. 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 He denies any pain. - Related Data Allergies Allergy/AdvReac Type Severity Reaction Status Date / Time celery Allergy Vomiting Verified 04/07/20 09:47 Home Meds: Home Meds Finasteride [Proscar] 5 mg PO DAILY 03/14/13 [History] Magnesium Oxide 400 mg PO BEDTIME 03/14/13 [History] Montelukast [Singulair] 10 mg PO BEDTIME 03/14/13 [History] Terazosin [Hytrin] 5 mg PO BEDTIME 03/14/13 [History] Warfarin [Coumadin] 5 mg PO ASDIRECTED 03/14/13 [History] Chlorpheniramine Maleate [Allergy Relief] 12 mg PO DAILY PRN 02/11/19 [History] Ipratropium [Atrovent 0.06% Nasal [place]] 2 spray NASBOTH Q6H PRN #1 bottle 02/12/19 [Rx] Metoprolol Succinate [Toprol Xl] 25 mg PO DAILY #90 tab.er.24h 03/12/19 [Rx] Metoprolol Succinate [Toprol Xl] 50 mg PO DAILY #90 tab.er.24h 03/12/19 [Rx] Aspirin [Halfprin] 81 mg PO DAILY 04/07/20 [History] Fluticasone Propionate [Flonase] 1 spray VERNA DAILY 04/07/20 [History] Furosemide [Lasix] 40 mg PO BID 04/07/20 [History] Multivitamin [Daily Multiple Vitamin] 1 tab PO DAILY 04/07/20 [History] Nitroglycerin [Nitrostat] 0.4 mg SL ASDIRECTED PRN 04/07/20 [History] Potassium Chloride [Klor-Con 10] 10 meq PO DAILY 04/07/20 [History] Warfarin [Coumadin] 5 mg PO Q7D 04/07/20 [History] atorvaSTATin [Lipitor] 10 mg PO BEDTIME 04/07/20 [History] lisinopriL [Lisinopril] 5 mg PO DAILY 04/07/20 [History] metOLazone [Zaroxolyn] 2.5 mg PO DAILY 04/07/20 [History] Past Medical History HEENT History: Reports: Cataract, Hard of Hearing, Impaired Vision Cardiovascular History: Reports: Hypertension, Pacemaker, Syncope Respiratory History: Reports: None Gastrointestinal History: Reports: GERD, Hepatitis Genitourinary History: Reports: Prostate Disorder Musculoskeletal History: Reports: Fracture Neurological History: Reports: None Psychiatric History: Reports: None Endocrine/Metabolic History: Reports: None Hematologic History: Reports: None Immunologic History: Reports: None Oncologic (Cancer) History: Reports: Prostate Dermatologic History: Reports: None - Infectious Disease History Infectious Disease History: Reports: Chicken Pox, Measles, Mumps - Past Surgical History HEENT Surgical History: Reports: Cataract Surgery Cardiovascular Surgical History: Reports: None Respiratory Surgical History: Reports: None GI Surgical History: Reports: Colonoscopy, EGD Endocrine Surgical History: Reports: None Neurological Surgical History: Reports: None Musculoskeletal Surgical History: Reports: None Oncologic Surgical History: Reports: None Dermatological Surgical History: Reports: None Social & Family History - Family History Family Medical History: No Pertinent Family History Oncologic: Reports: Breast, Prostate - Caffeine Use Caffeine Use: Reports: None ED ROS GENERAL - Review of Systems Review Of Systems: See Below Constitutional: Denies: Fever, Chills, Malaise, Weakness HEENT: Denies: Ear Pain, Throat Pain, Vision Change Respiratory: Denies: Shortness of Breath, Cough Cardiovascular: Reports: Lightheadedness, Syncope. Denies: Chest Pain Endocrine: Denies: High Glucose, Low Glucose GI/Abdominal: Denies: Abdominal Pain, Diarrhea, Vomiting : Denies: Dysuria, Flank Pain Musculoskeletal: Denies: Neck Pain, Shoulder Pain, Arm Pain, Back Pain, Hand Pain, Leg Pain Skin: Denies: Cyanosis, Jaundice, Mottled, Pallor, Diaphoresis Neurological: Reports: Dizziness, Syncope. Denies: Confusion, Headache, Seizure Psychiatric: Denies: Agitation, Anxiety, Confusion Hematologic/Lymphatic: Reports: Easy Bleeding (on warfarin). Denies: Anemia - Physical Exam Exam: See Below Exam Limited By: No Limitations General Appearance: Alert, WD/WN, No Apparent Distress Eye Exam: Bilateral Eye: EOMI, Normal Inspection, PERRL Ears: Normal External Exam, Hearing Grossly Normal Nose: Normal Inspection, No Blood Throat/Mouth: Normal Inspection, Normal Lips, Normal Voice, No Airway Compromise Head Exam: Atraumatic, Normocephalic Neck: Normal Inspection, Supple, Non-Tender, Full Range of Motion. No: Tender Lateral, Tender Midline Respiratory/Chest: No Respiratory Distress, Lungs Clear, Normal Breath Sounds, No Accessory Muscle Use Cardiovascular: Normal Peripheral Pulses, Regular Rate, Rhythm, No Edema, No Murmur GI/Abdominal: Normal Bowel Sounds, Soft, Non-Tender, No Organomegaly, No Distention Neuro Exam (Abbreviated): Alert, Oriented, CN II-XII Intact, Normal Cognition, No Motor/Sensory Deficits. No: Sensory/Motor Deficit Back Exam: Normal Inspection, Full Range of Motion. No: CVA Tenderness (L), CVA Tenderness (R) Extremities: Normal Inspection, Normal Range of Motion, Normal Capillary Refill, Other (no weakness or assymetry) Psychiatric: Normal Affect, Normal Mood Skin Exam: Warm, Dry, Intact, Normal Color, No Rash Course - Vital Signs Last Recorded V/S: Last Vital Signs Temp 96.9 F 04/07/20 09:40 Pulse 61 04/07/20 12:14 Resp 14 04/07/20 12:14 BP 137/76 04/07/20 12:14 Pulse Ox 95 04/07/20 12:14 - Orders/Labs/Meds Orders: Active Orders 24 hr Category Date Time Status EKG Documentation Completion [RC] ASDIRECTED Care 04/07/20 09:49 Active EKG 12 Lead [EK] Stat Ther 04/07/20 09:49 Ordered Labs: Laboratory Tests 04/07/20 04/07/20 04/07/20 Range/Units 09:20 09:20 10:17 WBC 5.60 (5.00-10.00) 10^3/uL RBC 4.02 L (4.50-6.00) 10^6/uL Hgb 12.2 L (13.0-17.0) g/dL Hct 37.9 L (40.0-52.0) % MCV 94.3 H (82.0-92.0) fL MCH 30.3 (27.0-31.0) pg MCHC 32.2 (32.0-36.0) g/dL RDW 15.7 H (11.5-14.5) % Plt Count 161 (150-400) 10^3/uL MPV 11.8 H (7.4-10.4) fL Immature Gran % (Auto) 0.2 (0.0-5.0) % Neut % (Auto) 51.5 (50.0-70.0) % Lymph % (Auto) 32.5 (20.0-40.0) % Lee % (Auto) 10.4 H (2.0-8.0) % Eos % (Auto) 4.1 H (1.0-3.0) % Baso % (Auto) 1.3 H (0.0-1.0) % Neut # (Auto) 2.89 (2.50-7.00) 10^3/uL Lymph # (Auto) 1.82 (1.00-4.00) 10^3/uL Lee # (Auto) 0.58 (0.10-0.80) 10^3/uL Eos # (Auto) 0.23 (0.10-0.30) 10^3/uL Baso # (Auto) 0.07 (0.00-0.10) 10^3/uL Immature Gran # (Auto) 0.01 (0.00-0.50) 10^3/uL PT TNP INR 1.9 H (0.9-1.1) Sodium 140 (136-145) mmol/L Potassium 3.6 (3.5-5.1) mmol/L Chloride 105 (98-107) mmol/L Carbon Dioxide 29.4 (21.0-32.0) mmol/L Anion Gap 9.2 (5-15) mmol/L BUN 20 H (7-18) mg/dL Creatinine 1.26 H (0.51-1.17) mg/dL Est Cr Clr Drug Dosing 43.99 mL/min Estimated GFR (MDRD) 54 mL/min Glucose 156 H (70-140) mg/dL Calcium 7.7 L (8.7-10.3) mg/dL Total Bilirubin 0.8 (0.2-1.0) mg/dL AST 30 (15-37) U/L ALT 26 (14-63) U/L Alkaline Phosphatase 167 H (46-116) U/L Troponin I 0.027 (0.000-0.056) ng/mL Total Protein 6.0 L (6.4-8.2) g/dL Albumin 2.79 L (3.40-5.00) g/dL - Re-Assessments/Exams Free Text/Narrative Re-Assessment/Exam: 04/07/20 10:37 Patient alert and stable since arrival. We are continuing the liter of NS that EMS started. 04/07/20 12:18 Labs and EKG okay. Discussed findings and plan with patient and with his son ([email or web address]) via phone call. Patient doing well and stable at time of discharge to assisted living. Departure - Departure Time of Disposition: 11:56 Disposition: Home, Self-Care 01 Condition: Good Clinical Impression: Hypovolemia due to dehydration Episode of syncope Qualifiers: Encounter type: initial encounter - Discharge Information Instructions: Dehydration, Elderly, [id number] Referrals: Razia Franklin MD [Primary Care Provider] - Additional Instructions: Drink 6-8 cups of water daily. Take time to maintain balance when first getting up from sitting or lying; or when getting out of a hot shower. Follow up with your PCP as needed if this continues. Sepsis Event Note (ED) - Focused Exam Vital Signs: Vital Signs Temp Pulse Resp BP Pulse Ox 04/07/20 12:14 61 14 137/76 95 04/07/20 11:45 60 16 142/82 H 96 04/07/20 11:15 61 18 132/79 97 04/07/20 11:00 60 16 119/77 96 04/07/20 10:45 60 18 120/73 96 04/07/20 10:30 61 18 120/64 96 04/07/20 10:15 60 16 114/61 97 04/07/20 10:00 60 16 111/65 96 04/07/20 09:40 96.9 F 60 18 108/66 95 - My Orders Last 24 Hours: My Active Orders 04/07/20 09:49 EKG Documentation Completion [RC] ASDIRECTED EKG 12 Lead [EK] Stat - Assessment/Plan Last 24 Hours: My Active Orders 04/07/20 09:49 EKG Documentation Completion [RC] ASDIRECTED EKG 12 Lead [EK] Stat
[2020-04-07 11:11] LABS: ANION GAP 9.2 mmol/L (5-15)
[2020-04-07 12:15] VITALS: BP 137/76; PULSE 61
== END 2020-04-07 12:45 | disposition home or self-care (01) ==
LOC: KA.ED 09:34
DX: E86.0 Dehydration (principal); R55 Syncope and collapse; E86.1 Hypovolemia; I10 Essential (primary) hypertension; Z91.018 Allergy to other foods; Z79.01 Long term (current) use of anticoagulants; Z79.82 Long term (current) use of aspirin; Z79.899 Other long term (current) drug therapy
CPT/HCPCS: 36415; 80053; 84484; 85025; 85610; 93005; 99284; 99284-25